=== PATIENT | female | born 1940 | race Caucasian/White ===

== ENCOUNTER 2022-01-06 12:08 | Emergency (ER) | payer OTHER ==
--- OUTSIDE RECORDS SUMMARY | 2022-01-06 12:14 | XMS REPORT | Continuity of Care Document ---
:1940 Author Organization [facility] t Address [address] [place] [address] Care Team Providers Name Role Phone GUILLE YODER Primary Care Physician Unavailable Heavenly Attending Clinician Unavailable Donell Vega Attending Clinician Unavailable Jose Daniel Hernandez Attending Clinician Unavailable Ayo Kang Attending Clinician Unavailable ANTHONY BURDICK Attending Clinician Unavailable Leonel Yoder Attending Clinician Unavailable UMBERTO HERNANDEZ Attending Clinician Unavailable Jeanine Attending Clinician Unavailable Alicia Attending Clinician Unavailable Mikaela Yoder Admitting Clinician Unavailable Ayo Kang Admitting Clinician Unavailable ANTHONY BURDICK Admitting Clinician Unavailable Payers Payer Name Policy Type Policy Number Effective Date Expiration Date S [facility] IMAGING [id number] 2020 00:00:00 Problems Condition Condition Condition Status Onset Resolution Last Treating Co mments Source Name Details Category Date Date Treatment Clinician Date M54.31 - Diagnosis Active 2017-082018-07-25 M emoria SCIATICA, 09-08 15:05:00 l RIGHT SIDE M54. - 00:01: Jeremiah rizzo SCIATICA, 00 RIGHT SIDE Active 07/09/2018 [facility] Unilateral Problem 2019-02-12 M emoria primary 11:33:21 l osteoarthr Juan n itis, Unilateral right hip primary osteoarthr itis, right hip 02/12/2019 [facility] Unspecifie Problem 2019-02-12 M emoria d sprain 11:33:21 l of right [place] hip, Unspecifie initial d sprain encounter of right hip, initial encounter 02/12/2019 [facility] Strain of Problem 2019-02-12 Me moria muscle, 11:33:21 l fascia and Strain Herm guille tendon of of muscle, right hip, fascia and initial tendon of encounter right hip, initial encounter 02/12/2019 [facility] Muscle Problem 2019-02-12 Memor ia wasting 11:33:21 l and Muscle [place] atrophy, wasting not and elsewhere atrophy, classified not , elsewhere unspecifie classified d site , unspecifie d site 02/12/2019 [facility] Effusion, Problem 2019-02-12 Me moria right hip 11:33:21 l [place] Effusion, right hip 02/12/2019 [facility] Pain in Problem 2019-02-12 Willian chas right hip 11:33:21 l Pain in [place] right hip 02/12/2019 [facility] History of Past Illness Condition Condition Condition Status Onset Resolution Last Treating Co mments Source Name Details Category Date Date Treatment Clinician Date Sciatica, Problem 2017-2019-02-12 2019-02-12 Memoria right side 2- 11:33:21 11:33:21 l 05:25: Reginald Sciatica, 51 right side 08/01/2018 02/12/2019 [facility] Allergies, Adverse Reactions, Alerts Allergy Allergy Status Severity Reaction(s) Onset Inactive Treating Comm ents Source Name Type Date Date Clinician No Known DA Active U MAGALIE Allergie 02-17 [facility] s 00:00: d 00 [facility] NO KNOWN Allergy Active [facility] ALLERGIE S Medications This patient has no known medications. Vital Signs Vital Name Observation Time Observation Value Comments Source HEIGHT 2021-09-05 10:02:00 170.2 cm WEIGHT 2021-09-05 10:02:00 73.483 kg Procedures This patient has no known procedures. Encounters Start End Encounter Admission Attending Care Care Encounter Source Date/Time Date/Time Type Type Clinicians Facility Department ID 2021-10-17 Outpatient MERCEDEZ Burdick [id number] [facility] 15:05:10 Thomas 31 [facility] 2021-07-24 Outpatient Heavenly HCAKW [facility] [id number] [facility] 14:56:14 Thomas 65 [facility] 2021-07-04 Outpatient Gary [facility] [id number] [facility] 01:54:04 Darian Choudhury [facility] 2020-09-30 Inpatient LIZA Hernandez, H[facility]KW [facility] [id number] [facility] 15:00:00 Katelyn [id number] [facility] 2020-09-26 Inpatient EL Mary, H[facility]KW [facility] [id number] [facility] 11:30:00 Katelyn [id number] [facility] 2020-09-20 Inpatient LIZA Hernandez, HCAKW [facility] [id number] [facility] 11:00:00 Katelyn [id number] [facility] 2022-01-04 2022-01-04 Outpatient LIZA Kang, HCAKW SHERRY [id number] [facility] 12:00:00 12:00:[address] [facility] 2021-10-17 2021-10-17 Outpatient LIZA Burdick HCAKW RADI [id number] [facility] 14:03:00 14:03:00 Thomas [id number] [facility] 2021-07-24 2021-07-24 Outpatient LIZA Burdick HCAKW CPUL [id number] [facility] 13:05:00 13:05:00 Thomas [id number] [facility] 2021-07-03 2021-07-03 Outpatient LIZA Vega, HCAKW CHINO [id number] [facility] 16:49:00 16:49:00 Darian [id number] [facility] 2021-02-16 2021-02-16 Outpatient LIZA Burdick HCAKW RADI [id number] [facility] 12:21:00 12:21:00 Thomas [id number] [facility] 2021-01-31 2021-01-31 Outpatient HEAVENLY [facility] [id number] 00:00:00 00:00:00 [facility] 2021-01-10 2021-01-10 Outpatient HEAVENLY [facility] [id number] 00:00:00 00:00:00 [facility] 2020-10-13 2020-10-13 Outpatient Eli HCATamieW RMRI [id number] [facility] 12:00:00 12:00:00 Jaquelin [id number] [facility] 2020-08-26 2020-08-26 Outpatient Mary, ANTONIAW RMRI [id number] [facility] 14:00:00 14:00:00 Katelyn [id number] [facility] 2020-05-31 2020-05-31 Outpatient DELOS HCATamieW RMRI [id number] [facility] 13:30:00 13:30:00 MARY, [facility] 2020-05-12 2020-05-12 Outpatient DelosMary, [facility] CAREK CHINO [id number] [facility] 10:30:00 10:30:00 Tam [facility] 2020-05-04 2020-05-04 Outpatient DelosMary, [facility] [id number] [facility] 15:30:00 15:30:00 Tam [id number] [facility] 2020-05-03 2020-05-03 Outpatient DelosMary, [facility] [id number] [facility] 15:00:00 15:00:00 Tam [id number] [facility] 2020-03-30 2020-03-30 Outpatient Alicia, [facility] CARETamie CHINO [id number] [facility] 09:30:00 09:30:00 Ramón [id number] [facility] 2020-01-14 2020-01-14 Outpatient EL Eli KNIGHTW RADI [id number] [facility] 13:26:00 13:26:00 , Jaquelin [id number] [facility] 2018-07-25 2018-07-26 Outpt Diag nullFlavo [facility] [id number] Memoria 20:50:00 05:59:00 Services r Outpatient 00 l Imaging Reginald [place] Results Test Test Test Comments Results Result Source Description Time Comments - XR FOOT 3 + V 2021-10- RT 08 15:01:00 [facility] SEDALIAName: JACQUIE HANKINS : 1940 Sex: F FAX: Rebecca Coronel [phone] [place]: St: REG FAX: Thomas Smith DPM [phone] Name: JACQUIE HANKINS DOLL [facility] : 1940 Age/S: 81/F [address] Unit #: [id number] Loc: [place] [address] Phys: Thomas Burdick DPM Acct: [id number] Dis Date: Status: REG CLI PHONE #: [phone] Exam Date: 10/17/2021 [facility]6 FAX #: [phone] Reason: FOOT PAIN EXAMS: CPT CODE: [id number] XR FOOT 3 + V RT [id number] EXAM: - XR FOOT 3 + V RT HISTORY: 81 years -old Female with FOOT PAIN ADMITTING DIAGNOSIS: Foot pain LOCATION: [facility] COMPARISON: February 16, 2021 TECHNIQUE: 3 views right foot FINDINGS: There are presence of metallic pins fixating the right 1st, 2nd, 3rd, and 4th digit. The patient extends from the distal turf through the middle and proximal phalanx and extending into the head and neck region of the metatarsals. Metallic plates and screw fixating the right 1st metatarsophalangeal joint be seen as well. There are several broken screw embedded within the base of the 1st and 2nd metatarsal as well as the navicular bone. There is evidence of bony fusion involving the base of the 1st, 2nd, 3rd and possible 4th metatarsal with the adjacent cuneiform. No fracture or dislocation can be seen. No intrinsic bony or joint pathology noted. No radiopaque foreign body can be seen. Overlying soft tissues are unremarkable. IMPRESSION: 1. Status post arthrodesis of involving the 1st through 4th digit, as discussed above. 2. Status post arthrodesis involving the metatarsal cuneiform joints. 3. No fracture or dislocation. at 1501 Reported and signed by: Ady Ratliff MD PAGE 1 Signed Report (CONTINUED) FAX: Rebecca Coronel [phone] [place]: St: REG FAX: Thomas Smith DPM [phone] Name: JACQUIE HANKINS [facility] : 1940 Age/S: 81/F [address] Unit #: [id number] Loc: [place] [address] Phys: Thomas Burdick DPM Acct: [id number] Dis Date: Status: REG CLI PHONE #: [phone] Exam Date: 10/17/2021 1426 FAX #: [phone] Reason: FOOT PAIN EXAMS: CPT CODE: [id number] XR FOOT 3 + V RT [id number] <Continued> CC: Jaquelin Yoder MD; Thomas Burdick DPM Technologist: ANA MARIA FAJARDO Trnctrd Date/Time/By: 10/17/2021 (1501) : By: Mariya PAGE 2 Signed Report FAX: Rebecca Coronel [phone] [place]: St: REG FAX: Thomas Smith DPM [phone] Name: JACQUIE HANKINS [facility] : 1940 Age/S: 81/F [address] Unit #: [id number] Loc: [place] [address] Phys: Thomas Burdick DPM Acct: [id number] Dis Date: Status: REG CLI PHONE #: [phone] Exam Date: 10/17/2021 1426 FAX #: [phone] Reason: FOOT PAIN EXAMS: CPT CODE: [id number] XR FOOT 3 + V RT [id number] <Continued> Orig Print D/T: S: 10/17/2021 (1504) PAGE 3 Signed Report TISSUE EXAM 2021-08- Surgical Pathology 31 Report 12:30:42 Case: [id number] Authorizing Provider: Thomas Burdick Collected: 09/07/2021 02:59 PM Ordering Location: [facility] - Perioperative Received: 09/08/2021 07:52 AM Services Pathologist: Alejandro Huerta DO Specimen: Foreign Body, 2 SCREWS FOR ID ONLY TWO SCREWS, REMOVAL:- CONSISTENT WITH SURGICAL HARDWARE Signing Pathologist Direct Phone Line: [phone] lly signed by Alejandro Huerta DO on 09/11/2021 at 12:30 [id number] limitus, right hammertoe of right foot, MPJ contracture right foot. Procedure: toe arthrodesis Foreign body, two screws for ID onlyReceived are two blue alloy screws measuring 1.5 cm in length with diameters of 0.2 cm. There is no adherent tissue. No sections will be submitted. EVELIN/pl Microscopic examination supports the diagnosis.[facility], Department of Pathology, [address] [facility] [place] [address], RAD, FOOT, 2 2021-08- Is this procedure to VIEWS, RIGHT 29 be performed with 06:55:[address] bearing?->Non-Weight [facility] - MEDICAL BearingReason for CENTERName: CR, exam:->s/p 1-4 JACQUIE DOLL hammertoe repair, 1st : 1940 MPJ arthrodesisShould Sex: this be performed at F the bedside?->Yes FINAL REPORT RAD, FOOT, 2 VIEWS, RIGHT INDICATION: s/p 1-4 hammertoe repair, 1st MPJ arthrodesis COMPARISON: None TECHNIQUE: AP and lateral radiographs of the right foot FINDINGS/IMPRESSION:Sta tus post surgical fixation of the right toes 1-4. Casting material obscures fine bony detail. Within these limitations, no definite hardware fracture or malalignment. Signed: Kami Jimenez MDRepreji Verified Date/Time: 09/09/2021 06:55:26 -GLUCOSE METER 2021-09-07 18:31:30 Test Item Value Reference Range Interpretation Comme nts POC-GLUCOSE METER (BEAKER) 70 mg/dL 70-110 : TESTED AT [facility] [address] [facility] (test code = 1538) [facility] [address]: Order Processing Clerk/Techni anushka ID = [id number] for Marleen Barksdale POCT-GLUCOSE [id number] 11:52:47 Test Item Value Reference Range Interpretation Comments POC-GLUCOSE METER 115 mg/dL 70-110 H : TESTED Leonel Lo [facility] [address] (BEAKER) (test code [address], = 1538) [place] [address] 384: Order Processing Clerk/Techni anushka ID = [id number] for Ned Montes De Oca SARS-COV2/RT-PCR ([facility])2021-08-19 12:44:46 Test Item Value Reference Range Interpretation Comments SARS-COV2/RT-PCR (test code = Positive Negative AA [id number]) Positive results indicate that the SARS-CoV-2 RNA was detected in this specimen. The SARS-CoV-2 RNAis generally detectable in nasopharyngeal swab specimens during the acute phase of infection. Positive results are indicative of active infection with SARS-CoV-2 and the patient is presumed to be contagious. Laboratory test results should always be considered in the clinical correlation with patienthistory and other epidemiological and diagnostic information that is necessary to determine patient infection status. Patient management decisions should follow current CDC guidelines. Positive results do not rule out bacterial infection or co-infection with other viruses. The agent detected may not be the definite cause of disease.The limit of detection for this assay is 100 copies/mL.This SARS-CoV-2 test is a real-time RT-PCR test intended for the qualitative detection of nucleic acid from SARS-CoV-2 in a nasopharyngeal swab specimen collected from individuals suspected of COVID-19 by their healthcare provider.This test has not been Food and Drug Administration (FDA) cleared or approved. This is a modified version of an approved Emergency Use Authorization (EUA) and is in the process of review by the FDA. Once authorized by the FDA, the issued EUA will be effective until the declaration that circumstances exist justifying the authorization of the emergency use of in vitro diagnostic tests for detection and/or diagnosis of COVID-19 is terminated under Section 564(b)(2) of the Act or the EUA is revoked under Section 564(g) of the Act.Testing was performed using the [employer] SARS-CoV-2 assay.Fact Sheet for Healthcare Providers:https://www.SnapSense.[employer]/juanito/RT SARS-CoV-2 HCP Fact Sheet 51- 944302.pdfFact Sheet for Healthcare Patients:https://www.Clinithink/juanito/RT SARS-CoV-2 PatientFact Sheet EN 51-480223U4.pdf- DOP ART 1-2 LEVELS AUDREY 2021-07-24 14:53:00 [facility] JACQUIE LAVON : 1940 Sex: F FAX: Rebecca Coronel [phone] [place]: St: REG FAX: Thomas Dorsey DPM [phone] Name: CRJACQUIE DOLL [facility] : 1940 Age/S: 81/F [address] Unit #: [id number] Loc: [place] [address] Phys: Thomas Burdick DPM Acct: [id number] Dis Date: Status: REG CLI PHONE #: [phone] Exam Date: 07/24/2021 1415 FAX #: [phone] Reason: LE PAD,HISTORY OF ULCER EXAMS: CPT CODE: [id number] DOP ART 1-2 LEVELS AUDREY 25810OITJ: - DUP LE ART UNI RT, - DOP ART 1-2 LEVELS AUDREY. LOCATION: B2. HISTORY: LE PAD,HISTORY OF ULCER. COMPARISON: Lower extremity Doppler dated 10/22/2017. TECHNIQUE: Grayscale, color and spectral Doppler evaluation of the right and left common femoral, superficial femoral, popliteal, anterior tibial, peroneal, and posterior tibial arteries was performed. Bilateral ankle brachial indices were also obtained. FINDINGS: Triphasic waveforms are seen in the right common femoral artery. Biphasic waveforms are seen in the right superficial femoral, popliteal, posterior tibial, peroneal, anterior tibial, and dorsalis pedis arteries. There is no significant elevation of segmental systolic velocity in the right lower extremity. Biphasic waveforms are seen in the left common femoral, superficial femoral, popliteal, posterior tibial, peroneal, anterior tibial, and d orsalis pedis arteries. There is no significant elevation of segmental systolic velocity in the left lower extremity. Right KELLY: 0.96. Left KELLY: 0.99. IMPRESSION: No sonographic findings of significant arterial stenosis in bilateral lower extremities. at 1453 Reported and signed by: Richi Manuel MD CC: Jaquelin Ruff MD; Thomas Burdick DPM Technologist:BHAVANA Mukherjee Trnscrd Date/Time/By: 07/24/2021 (5113) : By:[email or web address] PAGE 1 Signed Report FAX: Rebecca Coronel [phone] [place]: St: REG FAX: Thomas Smith DPM [phone] Name: JACQUIE HANKINS [facility] : 1940 Age/S: 81/F [address] Unit #: [id number] Loc: [place] [address] Phys: Thomas Burdick DPM Acct: [id number] Dis Date: Status: REG CLI PHONE #: [phone] Exam Date: 07/24/20211414 FAX #: [phone] Reason: LE PAD,HISTORY OF ULCER EXAMS: CPT CODE: [id number] DOP ART 1-2 LEVELS AUDREY 58317 <Continued> OrigPrint D/T: S: 07/24/2021 (9377) PAGE 2 Signed Report- DUP LE ART UNI RT 2021-07-24 14:53:00 [facility] : 1940 Sex: F FAX: Rebecca Coronel [phone] [place]: St: [facility] FAX: Thomas Dorsey DPM [phone] Name: JACQUIE HANKINS [facility] : 1940 Age/S: 81/F [address] Unit #: [id number] Loc: [place] [address] Phys: Thomas Burdick DPM Acct: [id number] Dis Date: Status: REG CLI PHONE #: [phone] Exam Date: 07/24/20211414 FAX #: [phone] Reason: LEPAD,HISTORY OF ULCER EXAMS: CPT CODE: [id number] DUP LE ART UNI RT 47194ITWE: - DUP LE ART UNI RT, - DOP ART 1-2 LEVELS AUDREY. LOCATION: B2. HISTORY: LE PAD,HISTORY OF ULCER. COMPARISON: Lower extremity Doppler dated 10/22/2017. TECHNIQUE: Grayscale, color and spectral Doppler evaluation of the right and left common femoral, superficial femoral, popliteal, anterior tibial, peroneal, and posterior tibial arteries was performed. Bilateral ankle brachial indices were also obtained. FINDINGS: Triphasic waveforms are seen in the right common femoral artery. Biphasic waveforms are seen in the right superficial femoral, popliteal, posterior tibial, peroneal, anterior tibial, and dorsalis pedis arteries. There is no significant elevation of segmental systolic velocity in the right lower extremity. Biphasic waveforms are seen in the left common femoral, superficial femoral, popliteal, posterior tibial, peroneal, anterior tibial, and d orsalis pedis arteries. There is no significant elevation of segmental systolic velocity in the left lower extremity. Right KELLY: 0.96. Left KELLY: 0.99. IMPRESSION: No sonographic findings of significant arterial stenosis in bilateral lower extremities. at 1453 Reported and signed by: Richi Manuel MD CC: Jaquelin Ruff MD; Thomas Burdick DPM Technologist:BHAVANA Mukherjee Trnscrd Date/Time/By: 07/24/2021 (0642) : By:[email or web address] PAGE 1 Signed Report FAX: Rebecca Coronel [phone] [place]: St: REG FAX: Thomas Smith DPM [phone] Name: JACQUIE HANKINS LAVON [facility] : 1940 Age/S: 81/F [address] Unit #: [id number] Loc: [place] [address] Phys: Thomas Burdick DPM Acct: [id number] Dis Date: Status: REG CLI PHONE #: [phone] Exam Date: 07/24/20211414 FAX #: [phone] Reason: LEPAD,HISTORY OF ULCER EXAMS: CPT CODE: [id number] [address] <Continued> OrigPrint D/T: S: 07/24/2021 (1454) PAGE 2 Signed Report- [facility] [id number] 01:50:00 [facility] : 1940 Sex: F FAX: Brandi Coronelzabet [phone] [place]: St: DEP FAX: Darian Epstein am [phone] Name: JACQUIE HANKINS [facility] : 1940 Age/S: 81/F [address] Unit #: [id number] Loc: [place] [address] Phys: Darian Vega MD Acct: [id number] Dis Date: Status: DEP CLI PHONE #: [phone] Exam Date: 07/03/2021 1825 FAX #: [phone] Reason: CYST OF KIDNEY EXAMS: CPT CODE: [id number] US RETROPERITONEAL COM [id number] LOCATION: H48 HISTORY: Female, 81 years of age with acquired cyst of kidne y EXAM: ULTRASOUND OF THE KIDNEYS AND URINARY BLADDER COMPARISON: CT abdomen 09/30/2000, MRI abdomen 10/13/2020 TECHNIQUE: Transabdominal images of the kidneys and urinary bladder with color Doppler interrogation were performed with the sector transducer. FINDINGS: RIGHT KIDNEY: 10.4 x 5.9 x 5.1 cm Cortex: 1.1 cm thickness,normal echogenicity. No hydronephrosis, calculus, or obvious mass. LEFT KIDNEY: 9.7 x 4.4 x 5.1 cm Cortex: 0.8 cm thickness, normal echogenicity. No hydronephrosis, calculus, or obvious mass. URINARY BLADDER: Images of the moderately full urinary bladder show no significant wall thickening. No filling defects or diverticula. Ureteral jets are not visualized. IMPRESSION: Unremarkable ultrasound of the kidneys and urinary bladder. It should be noted that previous MRI and CT scan showed multiple small less than 1 cm cystic lesions in both kidneys which are not detected by this ultrasound probably due tosize. at 0150 Reported and signed by: Anh Rubi MD CC: Jaquelin Yoder MD; Darian Ahuja MD Technologist: Garry Shultz [facility] Trnscrd Date/Time/By: 07/04/2021 (0150) : By: JoyCLW PAGE 1 Signed Report FAX: Rebecca Coronel [phone] [place]: St: [facility] FAX: Darian Valdez [phone] Name: JACQUIE HANKINS [facility] : 1940 Age/S: 81/F [address] Unit #: [id number] Loc: [place] [address] Phys: Darian Vega MD Acct: [id number] Dis Date: Status: DEP CLI PHONE #: [phone] Exam Date: 07/03/2021 1825 FAX #: [phone] Reason: CYST OF KIDNEY EXAMS: CPT CODE: [id number] [place] [address] <Continued> Orig Print D/T: S: 07/04/2021 (0153) PAGE 2 Signed Report- XR FOOT 3 + V [id number] 12:55:00 [facility] [place] : 1940 Sex: F FAX: Rebecca Coronel [phone] [place]: [facility]: REG FAX: Thomas Dorsey Ayo [phone] Name: BELEM HANKINSEMERALD DOLL [facility] : 1940 Age/S: 80/F [address] Unit #: [id number] Loc: [place] [address] Phys: Thomas Burdick DPM Acct: [id number] Dis Date: Status: REG CLI PHONE #: [phone] Exam Date: 02/16/2021 1240 FAX #: [phone] Reason: FOOT MIDFOOT COLLAPSE EXAMS: CPT CODE: [id number] XR FOOT 3 + V RT 11487FCIX: - XR FOOT 3 + V RT HISTORY: FOOT MIDFOOT COLLAPSE Location code:C3 COMPARISON: 08/26/2015 FINDINGS: AP, oblique, and lateral view of the right foot is provided. Remnant orthopedic screws within the navicular, 1st and 2nd metatarsal IMPRESSION: No acute osseous abnormality. And the 1st and 2nd metatarsals are seen. Healed deformity left 1st metatarsal is present. Dorsal dislocation of the proximal phalanx of the great toe relative the metatarsal is seen. With features within the 2nd and 3rd metatarsal heads are present. Hammertoe deformity about the 3rd through 5th digits is seen with marked degenerative features. Weightbearing lateral view demonstrates mild pes planus. IMPRESSION: 1. Mild pes planus and weightbearing lateral view. 2. Postsurgical and chronic features as above. at 3557 Reported and signed by: Shahab Prado MD CC: Jaquelin Yoder MD; Thomas Burdick DPM Technologist: ANA MARIA SHIPLEY; STUDENT 2ND YEAR [facility] Date/Time/By: 02/16/2021 (0278) : By: [email or web address] PAGE 1 Signed Report FAX: Rebecca Coronel [phone] [place]: St: REG FAX: Thomas Smith DPM [phone] Name: JACQUIE HANKINS [facility] : 1940 Age/S: 80/F [address] Unit #: [id number] L oc: [place] [address] Phys: Thomas Burdick DPAyo Acct: [id number] Dis Date: Status: REG CLI PHONE #: [phone] Exam Date: 02/16/2021 1240 FAX #: [phone] Reason: FOOT MIDFOOT COLLAPSE EXAMS: CPT CODE: [id number] XR FOOT 3 + V [place] [id number] <Continued> Orig Print D/T: S: 02/16/2021 (2941) PAGE 2 Signed Report- MRI PELVIS W/O [id number] 14:59:00 [facility] 1940 Sex: F FAX: Rebecca Coronel [phone] [place]: St: REG Name: JACQUIE HANKINS [facility] : 1940 Age/S: 80/F [address] Unit #: [id number] Loc: [place] [address] Phys: Jaquelin Yoder MD Acct: [id number] Dis Date: S tatus: REG CLI PHONE #: [phone] Exam Date: 10/13/2020 1308 FAX #: [phone] Reason: OTHER SPECIFIED DISORDERS OF KIDNEY AND URETER EXAMS: CPT CODE: [id number] MRI PELVIS W/O CONT 26941 EXAM: - MRI ABDOMEN W/O CONT, - MRI PELVIS W/O CONT INDICATION: OTHER SPECIFIED DISORDERS OF KIDNEY AND URETER Location:T 18. COMPARISON: CT and MRI examinations since 2019. TECHNIQUE: Multiplanar, multisequence MRI of the abdomen and pelvis was performed without intravenous contrast. FINDINGS: Visualized chest: No consolidation or pleural effusion seen. Assessment of abdominal organs within limitations of lack of intravenous contrast asfollows: Hepatobiliary: Heterogeneous right hepatic lobe due to hyperintense structure measuring approximately 4.1 cm x 2.4 cm in size appears to be essentially unchanged since 2019. Multiple hepatic T2 hyperintensities also appear unchanged, consistent withcysts. There is mild extrahepatic and intrahepatic The urinary ductal dilatation seen, unchanged. Pancreas: Mild pancreatic ductal dilatation also seen, unchanged. Spleen: Appears unremarkable. Adrenals: Appears unremarkable. Kidne ys: Mild atrophy of the renal parenchyma seen bilaterally. Small T2 hyperintense structure within the medial aspect of the right kidney on series 8, image 19 measuring 7 mm in size, betterevaluated on the current study compared to the most recent CT examination. Additional similar- appearing multiple tiny renal T2 hyperintensities, seen bilaterally. No hydronephrosis seen. Bowel: No bowel obstruction or ileus seen. Colonic diverticulosis. Vascular: Not well assessed due to lack of intravenous contrast. PAGE 1 Signed Report (CONTINUED) FAX: Rebecca Coronel [phone] [place]: St: REG ---- Name: JACQUIE HANKINS [facility] : 1940 Age/S: 80/F [address] Unit #: [id number] Loc: [place] [address] Phys: [facility]elin [facility]ieto [facility] [id number] Dis Date: Status: REG CLI PHONE #: [phone] Exam Date: 10/13/2020 1308 FAX #: [phone] Reason: OTHER SPECIFIED DISORDERS OF KIDNEY AND URETER EXAMS: CPT CODE: [id number] MRI PELVIS W/O CONT 38323 <Continued> Lymph nodes: No enlarged lymph nodes seen. Peritoneum: No ascites seen. Soft tissues:No significant abnormality seen. Bones:No definite acute or destructive osseous process appreciated. Genitourinary: The urinary bladder is mildly distended. The patient appears to be post hysterectomy, and probable salpingo-oophorectomy. IMPRESSION: Unchanged appearance of right hepatic lobe heterogeneous structure. Follow-up imaging in 12 months. Multiple small renal T2 hyperintensities, one of which corresponds to the previously noted CT abnormality. These are incompletelycharacterized, but probably reflect cysts. Attention on follow-up imaging. Unchangedmild biliary and pancreatic ductal dilatation, uncertain etiology. Findings raise the possibility of an ampullary pathology. Consider GI consultation. Attention on follow-up imaging. at 5874 Reported and signed by: Yunior Villanueva MD CC: Jaquelin Yoder MD Technologist:Shae Romano Trnscrd Date/Time/By: 10/13/2020 (9612) : By:[email or web address] PAGE 2 Signed Report FAX: Rebecca Calhoun [phone] [place]: St: REG Name: JACQUIE HANKINS [facility] : 1940 Age/S: 80/F [address] Unit #: [id number] Loc: [place] [address] Phys: Jaquelin Yoder MD Acct: [id number] Dis Date: Status: REG CLI PHONE #: [phone] Exam Date: 10/13/2020 1308 FAX #: [phone] Reason: OTHER SPECIFIED DISORDERS OF KIDNEY AND URETER EXAMS: CPT CODE: [id number] MRI PELVIS W/O CONT 31409 <Continued> Orig Print D/T: S: 10/13/2020 (1507) PAGE 3 Signed Report- MRI ABDOMEN W/O [id number] 14:59:00 [facility] : 1940 Sex: F FAX: Y Rebecca Yoder [phone] [place]: St: REG Name: JACQUIE HANKINS [facility] : 1940 Age/S: 80/F [address] Unit #: [id number] Loc: [place] [address] Phys: Jaquelin Yoder MD Acct: [id number] Dis Date: S tatus: SUNNY JASSO PHONE #: [phone] Exam Date: 10/13/2020 1309 FAX #: [phone] Reason: OTHER SPECIFIED DISORDERS OF KIDNEY AND URETER EXAMS: CPT CODE: [id number] MRI ABDOMEN W/O CONT 37649 EXAM: - MRI ABDOMEN W/O CONT, - MRI PELVIS W/O CONT INDICATION: OTHER SPECIFIED DISORDERS OF KIDNEY AND URETER Location:T 18. COMPARISON: CT and MRI examinations since 2019. TECHNIQUE: Multiplanar, multisequence MRI of the abdomen and pelvis was performed without intravenous contrast. FINDINGS: Visualized chest: No consolidation or pleural effusion seen. Assessment of abdominal organs within limitations of lack of intravenous contrast asfollows: Hepatobiliary: Heterogeneous right hepatic lobe due to hyperintense structure measuring approximately 4.1 cm x 2.4 cm in size appears to be essentially unchanged since 2019. Multiple hepatic T2 hyperintensities also appear unchanged, consistent withcysts. There is mild extrahepatic and intrahepatic The urinary ductal dilatation seen, unchanged. Pancreas: Mild pancreatic ductal dilatation also seen, unchanged. Spleen: Appears unremarkable. Adrenals: Appears unremarkable. Kidne ys: Mild atrophy of the renal parenchyma seen bilaterally. Small T2 hyperintense structure within the medial aspect of the right kidney on series 8, image 19 measuring 7 mm in size, betterevaluated on the current study compared to the most recent CT examination. Additional similar- appearing multiple tiny renal T2 hyperintensities, seen bilaterally. No hydronephrosis seen. Bowel: No bowel obstruction or ileus seen. Colonic diverticulosis. Vascular: Not well assessed due to lack of intravenous contrast. PAGE 1 Signed Report (CONTINUED) FAX: Rebecca Coronel [phone] [place]: St: REG ---- Name: JACQUIE HANKINS [facility] : 1940 Age/S: 80/F [address] Unit #: [id number] Loc: [place] [address] Phys: Jaquelin Nieto [facility] [id number] Dis Date: Status: REG CLI PHONE #: [phone] Exam Date: 10/13/2020 1309 FAX #: [phone] Reason: OTHER SPECIFIED DISORDERS OF KIDNEY AND URETER EXAMS: CPT CODE: [id number] MRI ABDOMEN W/O CONT 94742 <Continued> Lymph nodes: No enlarged lymph nodes seen. Peritoneum: No ascites seen. Soft tissues:No significant abnormality seen. Bones:No definite acute or destructive osseous process appreciated. Genitourinary: The urinary bladder is mildly distended. The patient appears to be post hysterectomy, and probable salpingo-oophorectomy. IMPRESSION: Unchanged appearance of right hepatic lobe heterogeneous structure. Follow-up imaging in 12 months. Multiple small renal T2 hyperintensities, one of which corresponds to the previously noted CT abnormality. These are incompletelycharacterized, but probably reflect cysts. Attention on follow-up imaging. Unchangedmild biliary and pancreatic ductal dilatation, uncertain etiology. Findings raise the possibility of an ampullary pathology. Consider GI consultation. Attention on follow-up imaging. at 1366 Reported and signed by: Yunior Villanueva MD CC: Jaquelin Yoder MD Technologist:Shae Romano Trnscrd Date/Time/By: 10/13/2020 (1139) : By:[email or web address] PAGE 2 Signed Report FAX: Rebecca Calhoun [phone] [place]: St: REG Name: JACQUIE HANKINS [facility] : 1940 Age/S: 80/F [address] Unit #: [id number] Loc: [place] [address] Phys: Jaquelin Yoder MD Acct: [id number] Dis Date: Status: REG CLI PHONE #: [phone] Exam Date: 10/13/2020 1309 FAX #: [phone] Reason: OTHER SPECIFIED DISORDERS OF KIDNEY AND URETER EXAMS: CPT CODE: [id number] MRI ABDOMEN W/O CONT 94204 <Continued> Orig Print D/T: S: 10/13/2020 (1502) PAGE 3 Signed ReportBEDSIDE [id number] 12:40:00 Test Item Value Reference Range Interpretation Comments BEDSIDE CREATININE (test code = 1.90 mg/dL 0.51-1.19 H CREATBED) - CT ABDOMEN W W/O [id number] 14:17:00 [facility] : 1940 Sex: F FAX: Y Rebecca Yoder [phone] [place]: St: REG FAX: Katelyn Hernandez [phone] Name: JACQUIE HANKINS [facility] : 1940 Age/S: 80/F [address] Unit: [id number] Loc: [place] [address] Phys: Katelyn Hernandez [employer] Acct: [id number] Dis Date: Status: REG CLI PHONE #: [phone] Exam Date: 09/30/2020 1337 FAX #: [phone] Reason: LIVER LESION EXAMS: CPT CODE: [id number] CT ABDOMEN W W/O CONTRAST 03696KJJT: - CT ABDOMEN W W/O CONTRAST LOCATION: H65 TECHNIQUE: Serial axialCT images were obtained from above the diaphragm to below the kidneys without and with the administration of intravenous contrast. Oral contrast was not administered. Phase(s): Noncontrast, arterial, portal venous, and delayed phases. Reformats: Standard coronal and sagittal reformats. This exam was performed according to our departmental dose-optimization program, which includes automated exposure control, adjustment of the mA and/or kV according to patient size and/or use of iterative reconstruction technique. COMPARISON: MRI abdomen 05/31/2020; CT abdomen and pelvis 05/03/2020, 09/13/2018 HISTORY: LIVER LESION FINDINGS: LUNG BASES: Perfusion related atelectasis noted in the dependent lung bases. Three-vessel coronary artery calcifications again seen. LIVER: Normal attenuation and contour. Multiple well- circumscribed hypodense lesions are again noted, representing known simple cysts as seen on prior MRI. Complex density irregular shaped hypodense lesion is again noted in hepatic segment 7 measuring approximately 4.6 x 3.5 cm (series 2 image 22). There does appear to be a isodense/soft tissue component which demonstrates minimal enhancement. BILIARY: The gallbladder is normal. No intrahepatic or extrahepatic biliary ductal dilation. PANCREAS: Atrophic, but otherwise unremarkable. SPLEEN: Normal. ADRENALS: Normal. KIDNEYS: The kidneys are normal in size with symmetric enhancement. No hydronephrosis or kidney stones. Bilateral subcentimeter hypodense lesions noted, which correspond to simple renal cyst seen on prior PAGE 1 Signed Report (CONTINUED) FAX: Rebecca Coronel [phone] [place]: St: REG FAX: Katelyn Hernandez [phone] Name: JACQUIE HANKINS [facility] : 1940 Age/S: 80/F [address] Unit: [id number] Loc: [place] [address] Phys: Katelyn Hernandez [employer] Acct: [id number] Dis Date: Status: REG CLI PHONE #: [phone] Exam Date: 09/30/2020 1337 FAX #: [phone] Reason: LIVER LESION EXAMS: CPT CODE: [id number] CT ABDOMEN W W/O CONTRAST 95087 <Continued> MRI. There is a 1.3 x 1.3 cm peripherally enhancing lesion medial interpolar region right kidney (series 2 image 31). The proximal ureters are nondilated. GASTROINTESTINAL: The distal esophagus is unremarkable. The small and large bowel loops demonstrate no signs of obstruction or inflammation. Colonic diverticulosis noted. The appendix is not visualized. VASCULAR: The abdominal aorta is nonaneurysmal. Moderate to severe atherosclerosis. Main portal vein is patent. LYMPH NODES: No enlarged lymph nodes. MESENTERY: Grossly unremarkable with no free air or loculated fluid collections. SOFT TISSUES: Unremarkable. BONES: No acute osseous findings. Evidence of prior compression deformities with kyphoplasty involvingthe T8 and T9 vertebral bodies. Mild scoliosis. IMPRESSION: 1. The complex density irregular shaped lesion involving hepatic segment7 is unchanged in size dating back to 2019 with ill-defined isodense/soft tissue component which appears to demonstrate minimal enhancement. This is indeterminate and may represent hyperdense debris/cricoid of blood products with artifactual enhancement from attenuation correction, but mixed solid cystic lesion is difficult to completely exclude. Again a multiphase MRI would be the optimal study choice for further evaluation. 2. Incidental note of 1.3 cm peripherally enhancing lesion involving the medial interpolar right ki dney. This is concerning for malignancy and would also be better assessed with multiphase MRI. PAGE 2 Signed Report (CONTINUED) FAX: Rebecca Coronel [phone] [place]: St: REG FAX: Katelyn Hernandez [phone] Name: JACQUIE HANKINS [facility] : 1940 Age/S: 80/F [address] Unit: [id number] Loc: [place] [address] Phys: Katelyn Hernandez NP Acct: [id number] Dis Date: Status: REG CLI PHONE #: [phone] Exam Date: 09/30/2020 [facility] FAX #: [phone] Reason: LIVER LESION EXAMS: CPT CODE: [id number] CT ABDOMEN W W/O CONTRAST 43144 <Continued> at 1417 Reported and signed by: Jose Angel Nina DO CC: Jaquelin Yoder MD; Katelyn Hernandez NP Technologist: CAREY Reese Trnscrd Dt/Tm: 09/30/2020 (7907) [id number] Orig Print D/T: S: 09/30/2020 (1420 PAGE 3 Signed ReportBEDSIDE [id number] 13:23:00 Test Item Value Reference Range Interpretation Comments BEDSIDE CREATININE (test code = 1.50 mg/dL 0.51-1.19 H CREATBED) - MRI ABDOMEN W/O [id number] 16:12:00 [facility] : 1940 Sex: F FAX: Rebecca Coronel [phone] [place]: St: REG FAX: Name: JACQUIE HANKINS [facility] : 1940 Age/S: 80/F [address] Unit #: [id number] Loc: [place] [address] Phys: KATELYN SOLORZANO Acct: [id number] Dis Date: Status: REG CLI PHONE #: [phone] Exam Date: 05/31/2020 1415 FAX #: [phone] Reason: LIVER LESION EXAMS: CPT CODE: [id number] MRI ABDOMEN W/O CONT 70748AQTH: - MRI ABDOMEN W/O CONT INDICATION: 80 years -old Female with LIVER LESION COMPARISON: 05/03/2020 CT abdomen and pelvis TECHNIQUE: Multisequential, multiplanar noncontrast MRI of the abdomen. FINDINGS: The common bile duct is normal in size. No filling defects. The gallbladder is unremarkable. No intrahepatic biliary ductal dilatation. Multiple T2 bright round lesions are seen throughout theliver. There is a 4.3 cm T2 heterogeneous lesion in segment 7 of the liver. Multiple subcentimeter round T2 bright lesions are identified in the kidneys. No hydronephrosis. The spleen, pancreas, adrenals, visualized bowel are unremarkable. No lymp hadenopathy. IMPRESSION: Multiple T2 bright round lesions throughout the liver are incompletely characterized. Differential diagnosis includes cysts, hemangiomas, or less likely metastasis. 4.3 cm lesion in segment 7 of the liver demonstrates T2 heterogeneity and a triple phase MRI of the abdomen is recommended for further evaluation of this particular lesion. Multiple subcentimeter T2 bright lesions in bothkidneys likely cysts. at 1612 Reported and signed by: Jewel Hyde MD CC: Jaquelin Yodre MD; KATELYN SOLORZANO Technologist: VENKATESH MENDEZ Trnctrd Date/Time/By: 05/31/2020 (8582) : By: [email or web address] PAGE 1 Signed Report FAX: Rebecca Coronel [phone] [place]: St: REG FAX: Name: JACQUIE HANKINS [facility] : 1940 Age/S: 80/F [address] Unit #: [id number] Loc: [place] [address] Phys: KATELYN SOLORZANO Acct: [id number] Dis Date: Status: REG CLI PHONE #: [phone] Exam Date: 05/31/2020 1415 FAX #: [phone] Reason: LIVER LESION EXAMS: CPT CODE: [id number] MRI ABDOMEN W/O CONT 24895 < Continued> Orig Print D/T: S: 05/31/2020 (1538) PAGE 2 Signed ReportBEDSIDE [id number] 14:22:00 Test Item Value Reference Range Interpretation Comments BEDSIDE CREATININE (test code = 1.70 mg/dL 0.51-1.19 H CREATBED) - US ABDOMEN [id number] 11:45:00 FAX: Rebecca Coronel [phone] [place]: St: REG FAX: Rodger Hernandez [phone] Name: JACQUIE HANKINS [facility] : 1940 Age/S: 80/F [address] Unit #: [id number] Loc: [place] [address] Phys: Anel Solorzano [employer] Acct: [id number] Dis Date: Status: REG CLI PHONE #: [phone] Exam Date: 05/12/2020 1139 FAX #: [phone] Reason: LIVER LESION EXAMS: CPT CODE: [id number] US ABDOMEN LTD 85600 EXAM: - US ABDOMEN LTD HISTORY: LIVER LESION Location code:C3 COMPARISON: 05/03/2020 TECHNIQUE: Grayscale B-mode and color Doppler sonographic images ofthe right upper quadrant were obtained. FINDINGS: Liver: Right hepatic lobe length: 15 cm Parenchyma/Contour: Anechoic nonvascular cysts are seen in the liver the largest of which is in the right hepatic lobe measuring 1.6 x 1.5 cm in size. There is a wedge-shaped hypoechoic structure without internal flow along the periphery of theliver in the right hepatic lobe inferiorly measuring 2.9 x 1.7 x 2.8 cm a few internal echoes corresponding with question CT abnormality. Main portal vein: Patent with normal (hepatopetal) flow. Biliary ducts: No intrahepatic biliary ductal dilation. Common ductmeasures 6 mm in diameter at the camilo hepatis. Gallbladder: Unremarkable. No cholelithiasis.No gallbladder wall thickening or pericholecystic fluid. Pancreas: The visualized portions of the pancreas are unremarkable. Right Kidney: No hydronephrosis is seen. Anechoic nonvascular cyst in the right kidney measuring 7 x 10 mm in size is present. Renal cortical thickness and echogenicity is within normal limits. Length: 12.3 cm Other: No ascites in the visualized abdomen. IMPRESSION: 1. Multiple hepatic cysts are present as well as simple right renal cyst however there is a lesion in the right hepatic lobe measuring 2.9 cm which cannot be characterized as simple cyst on the basis of this examination corresponding with abnormality seen on CT. Therefore CT or MRI of the liver with and without contrast utilizing hepatic mass PAGE 1 Signed Report (CONTINUED) FAX: Rebecca Calhoun [phone] [place]: [facility]: REG FAX: Rodger Hernandez [phone] Name: CRJACQUIE LAVON [facility] : 1940 Age/S: 80/F [address] Unit #: [id number] Loc: [place] [address] Phys: Anel Solorzano NP Acct: [id number] Dis Date: Status: REG CLI PHONE #: [phone] Exam Date: 05/12/2020 1135 FAX #: [phone] Reason: LIVER LESION EXAMS: CPT CODE: [id number] ABDOMEN LTD 16603 <Continued> protocol is still recommended. at 1145 Reported and signed by: Shahab Prado MD CC: Jaquelin Yoder MD; Anel Solorzano NP Technologist: Kathy Bell RDMS Trnscrd Date/Time/By: 05/12/2020 (1145) : By: [email or web address] PAGE 2 Signed Report FAX: Rebecca Coronel [phone] [place]: [facility]: REG FAX: Rodger Hernandez [phone] Name: JACQUIE HANKINS [facility] : 1940 Age/S: 80/F [address] Unit #: [id number] Loc: [place] [address] Phys: Anel Solorzano [employer] Acct: [id number] Dis Date: Status: REG CLI PHONE #: [phone] Exam Date: 05/12/2020 1131 FAX #: [phone] Reason: LIVER LESION EXAMS: CPT CODE: [id number] US ABDOMENLTD 85560 <Continued> Orig Print D/T: S: 05/12/2020 (6072) PAGE 3 Signed Report- CT ABD PELVIS W/O [id number] 15:08:00 FAX: Rebecca Calhoun [phone] [place]: St: REG FAX: Rodger Hernandez [phone] Name: JACQUIE HANKINS [facility] : 1940 Age/S: 80/F [address] Unit: [id number] Loc: [place] [address] Phys: Anel Solorzano [employer] Acct: [id number] Dis Date: Status: REG CLI PHONE #: [phone] Exam Date: 05/03/2020 1455 FAX #: [phone] Reason: LEFT UPPER QUADRANT PAIN EXAMS: CPT CODE: [id number] CT ABD PELVIS W/O CONT 94123 EXAM: - CT ABD PELVIS W/O CONT HISTORY: LEFT UPPER QUADRANT PAIN Location code:C3 TECHNIQUE: Contrast - No IV contrast was given. No oral contrast was given Noncontrast phase - abdomen and pelvis including all of kidneys Reconstructions - coronal and sagittal planes Automated exposure reduction (Auto mA/Smart mA) was utilized in compliance with ACR Image Wisely with DLP of 654 mGy-cm. COMPARISON: None FINDINGS: Statements: Lack of intravenous contrast compromises evaluation of abdominopelvicorgans and vasculature. Lack of oral contrast compromises evaluation of bowel. T horacic: Included images of the lower chest demonstrate no abnormalities. Hepatobiliary: Multiple hepatic hypodensities are present most of which represent simple cysts however the largest lesion is in the right hepatic lobe measuring 3.8 x 2.2 cm in cannot be characterized as simple cysts and there is associated peripheral calcification with this lesion. Please see discussion below. The gallbladder is normal. No biliary dilation. Pancreas: Normal. Spleen: Normal. Adrenals: Normal. Genitourinary: The kidneys are normal. There is no evidence of hydronephrosis of either kidney. There is no evidence of renal calculus. Evaluation of the bladder is limited, but no obvious bladder abnormality is present. Uterus is not visualized and presumed surgically absent. PAGE 1 Signed Report (CONTINUED) FAX: Rebecca Coronel [phone] [place]: St: REG FAX: Rodger Hernandez [phone] ---- Name: JACQUIE HANKINS [facility] : 1940 Age/S: 80/F [address] Unit: [id number] Loc: [place] [address] Phys: Anel Solorzano [employer] Acct: [id number] Dis Date: Status: REG CLI PHONE #: [phone] Exam Date: 05/03/2020 1455 FAX #: [phone] Reason: LEFT UPPER QUADRANT PAIN EXAMS: CPT CODE: [id number] CT ABD PELVIS W/O CONT 20972 <Continued> Gastrointestinal: Extensive colonic diverticulosis is present without CT evidence of diverticulitis. No bowelobstruction is seen. The appendix is normal. Vascular: Atherosclerotic calcifications are seen within the aorta and branch vessels. Lymphatics: No enlarged lymph nodes by CT size criteria. Bones/Soft Tissues: Right convex scoliosis of the lumbar spine is seen with multilevel degenerative features. Evidence of prior vertebral cement in the thoracic spine is partially imaged. No acute osseous abnormality is seen. No ventral hernias. Peritoneum/Other: No extraluminal air. No extraluminal fluid. IMPRESSION: 1. Multiple hepatic hypodensities are present some of which represent simple cysts however the largest lesion in the right hepatic lobe measuring up to 3.8 cmwith peripheral calcification is incompletely characterized. CT of the liver with and without contrast utilizing hepatic mass protocol is recommended. 2. Extensive colonic diverticulosis without CT evidence of diverticulitis. 3. Other chronic findings as above. at 1503 Reported and signed by: Shahab Prado MD CC: Jaquelin Yoder MD; Anel Solorzano NP Technologist: ORION KAPADIA Trnscrd Dt/Tm: 05/03/2020 (0652) [email or web address] Orig Print D/T: S: 05/03/2020 (1511 PAGE 2 Signed Report- US RETROPERITONEAL [id number] 10:57:00 FAX: Rebecca Calhoun [phone] [place]: St: REG FAX: Ramón Helm MD [phone] Name: JACQUIE HANKINS [facility] [place] : 1940 Age/S: 79/F [address] Unit #: [id number] Loc: [place] [address] Phys: Ramón Vargas MD Acct: [id number] Dis Date: Status: REG CLI PHONE #: [phone] Exam Date: 03/30/2020 1029 FAX #: [phone] Reason: CHRONIC KIDNEY DISEASE, UNSPECIFIED EXAMS: CPT CODE: [id number] [facility] COM 01492 EXAM: Ultrasound renal LOCATION: C3 HISTORY: ATHEROSCLEROSIS OF RENAL ARTERY TECHNIQUE: Grayscale B-mode and color Doppler sonographic images of the kidneys were performed. Dedicated grayscale B-mode and color Doppler pelvic imaging of the urinary bladder was also performed. Doppler interrogation of the renal vasculature also performed. COMPARISON: None available FINDINGS: The right kidney measures 12.2 x 5.8 x5.1 cm. No hydronephrosis. No focal lesions. Parenchyma is echogenic. The left kidney measures 10.6 x 4.9 x 6 cm. No hydronephrosis. No focal lesions. Parenchyma is echog enic. The urinary bladder volume is 352 mL with postvoid residual volume of 111 mL. Bilateral ureteral jets are seen. Peak systolic velocities: Aorta 74.3 cm/s Right renal artery 140 cm/s Left renal artery 52.1 cm/s Right renal artery to aorta ratio 1.9 Left renal artery to aorta ratio 0.7 IMPRESSION: No hydronephrosis. Medical renal disease. No evidence of renal artery stenosis. Significant postvoid residual. PAGE 1 Signed Report (CONTINUED) FAX: Rebecca Coronel [phone]: St: REG FAX: Ramón Helm MD [phone] Name: JACQUIE HANKINS [facility] : 1940 Age/S: 79/F [address] Unit #: [id number] [place]: [place] [address] Phys: Ramón Vargas MD Acct: [id number] Dis Date: Status: REG CLI PHONE #: [phone] Exam Date: 03/30/2020 1029 FAX #: [phone] Reason: CHRONIC KIDNEY DISEASE, UNSPECIFIED EXAMS: CPT CODE: [id number] [employer] [facility] [address] <Continued> at 1057 Reported and signed by: Jewel Hyde MD CC: Jaquelin Yoder MD; Ramón Vargas MD Technologist: Kathy Bell [facility] Trnscrd Date/Time/By: 03/30/2020 (6157) : By: [email or web address] PAGE 2 Signed Report FAX: Rebecca Coronel [phone] [place]: St: REG FAX: Ramón Helm MD [phone] --------- Name: JACQUIE HANKINS [facility] : 1940 Age/S: 79/F [address] Unit #: [id number] Loc: [place] [address] Phys: Ramón Kwan MD Acct: [id number] Dis Date: Status: REG CLI PHONE #: [phone] Exam Date: 03/30/2020 1029 FAX #: [phone] Reason: CHRONIC KIDNEY DISEASE, UNSPECIFIED EXAMS: CPT CODE: [id number] [facility] [address] <Continued> Orig Print D/T: S: 03/30/2020 (1100) PAGE 3 Signed Report- DUP ABD/PEL/SC [id number] 10:57:00 FAX: Rachel Rebecca Yoder [phone] [place]: St: REG FAX: Ramón Helm MD [phone] Name: JACQUIE HANKINS [facility] : 1940 Age/S: 79/F [address] Unit #: [id number] Loc: [place] [address] Phys: Ramón Vargas MD Acct: [id number] Dis Date: Status: REG CLI PHONE #: [phone] Exam Date: 03/30/2020 1029 FAX #: [phone] Reason: ATHEROSCLEROSIS OF RENAL ARTERY EXAMS: CPT CODE: [id number] [facility] ABD/PEL/SC COMP 87950 EXAM: Ultrasound renal LOCATION: C3 HISTORY: ATHEROSCLEROSIS OF RENAL ARTERY TECHNIQUE: Grayscale B-mode and color Doppler sonographic images of the kidneys were performed. Dedicated grayscale B-mode and color Doppler pelvic imaging of the urinary bladder was also performed. Doppler interrogation of the renal vasculature also performed. COMPARISON: None available FINDINGS: The right kidney measures 12.2 x 5.8 x5.1 cm. No hydronephrosis. No focal lesions. Parenchyma is echogenic. The left kidney measures 10.6 x 4.9 x 6 cm. No hydronephrosis. No focal lesions. Parenchyma is echog enic. The urinary bladder volume is 352 mL with postvoid residual volume of 111 mL. Bilateral ureteral jets are seen. Peak systolic velocities: Aorta 74.3 cm/s Right renal artery 140 cm/s Left renal artery 52.1 cm/s Right renal artery to aorta ratio 1.9 Left renal artery to aorta ratio 0.7 IMPRESSION: No hydronephrosis. Medical renal disease. No evidence of renal artery stenosis. Significant postvoid residual. PAGE 1 Signed Report (CONTINUED) FAX: Rebecca Coronel [phone]: St: REG FAX: Ramón Helm MD [phone] Name: JACQUIE HANKINS [facility] : 1940 Age/S: 79/F [address] Unit #: [id number] Loc: [place] [address] Phys: Ramón Vargas MD Acct: [id number] Dis Date: Status: REG CLI PHONE #: [phone] Exam Date: 03/30/2020 1029 FAX #: [phone] Reason: ATHEROSCLEROSIS OF RENAL ARTERY EXAMS: CPT CODE: [id number] DUP ABD/PEL/SC COMP 63821 <Continued> at 1057 Reported and signed by: Jewel Hyde MD CC: Jaquelin Yoder MD; Ramón Vargas MD Technologist: Kathy Bell [facility] Trnscrd Date/Time/By: 03/30/2020 (1057) : By: [email or web address] PAGE 2 Signed Report FAX: Rebecca Coronel [phone] [place]: St: REG FAX: Ramón Helm MD [phone] --------- Name: JACQUIE HANKINS [facility] : 1940 Age/S: 79/F [address] Unit #: [id number] Loc: [place] [address] Phys: Ramón Kwan MD Acct: [id number] Dis Date: Status: REG CLI PHONE #: [phone] Exam Date: 03/30/2020 1029 FAX #: [phone] Reason: ATHEROSCLEROSIS OF RENAL ARTERY EXAMS: CPT CODE: [id number] D[facility] ABD/PEL/SC COMP 83653 <Continued> Orig Print D/T: S: 03/30/2020 (1100) PAGE 3 Signed Report- XR RIBS UNI 2 V [id number] 15:00:00 FAX: Rebecca Coronel [phone] [place]: St: REG Name: JACQUIE HANKINS [facility] : 1940 Age/S: 79/F [address] Unit#: [id number] Loc: [place] [address] Phys: Jaquelin Yoder MD Acct: [id number] Dis Date: Status: REG CLI PHONE #: [phone] Exam Date: 01/14/2020 1433 FAX #: [phone] Reason: OTHER CHEST PAIN EXAMS: CPT CODE: [id number] XR RIBS UNI 2 [place] [address] EXAM: LEFT RIBS 2 VIEWS INDICATION: CHEST PAIN LOCATION: B2 COMPARISON: October 23, 2018 TECHNIQUE: AP and oblique views of the left ribs. FINDINGS: No acute fracture or dislocation is identified. No osseous lesion is identified. The thoracic cavity is normal with no pneumothorax.No soft tissue abnormality. No joint effusion. IMPRESSION: No displac ed rib fractures are identified. at 1500 Reported and signed by: Alicia Drake MD CC: Jaquelin Yoder MD Technologist: Digna Vilchis Trnctrd Date/Time/By: 01/14/2020 (1500) : By: 16 PAGE 1 Signed Report FAX: Rebecca Coronel [phone] [place]: St: REG -- Name: JACQUIE HANKINS [facility] : 1940 Age/S: 79/F [address] Unit #: [id number] Loc: [place] [address] Phys: Jaquelin Nieto MD Acct: [id number] Dis Date: Status: REG CLI PHONE #: [phone] Exam Date: 01/14/2020 1433 FAX #: [phone] Reason: OTHER CHEST PAIN EXAMS: CPT CODE: [id number] XR RIBS UNI [place] [address] <Continued> Orig Print D/T: S: 01/14/2020 (4941) PAGE 2 Signed Report- XR T-SPINE 3 [id number] 14:59:00 FAX: Rebecca Coronel [phone] [place]: St: REG Name: JACQUIE HANKINS : 1940 Age/S: 79/F [address] Unit#: [id number] Loc: [place] [address] Phys: Jaquelin Yoder MD Acct: [id number] Dis Date: Status: REG CLI PHONE #: [phone] Exam Date: 01/14/2020 1422 FAX #: [phone] Reason: PAIN IN THORACIC SPINE EXAMS: CPT CODE: [id number] XR T-SPINE 3 VIEWS 59109 EXAM: XR THORACIC SPINE 3 VIEWS INDICATION: PAININ THORACIC SPINE LOCATION: B2 COMPARISON: Chest radiograph dated October 23, 2018 TECHNIQUE: AP, swimmer's and lateral radiographs of the thoracic spine DISCUSSION: There are chronic compression fractures in the midthoracic spine withpost vertebroplasty changes noted. The vertebral bodies are normal in height, alignment and density. Facet joints and spinous processes are in normal alignment. 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 No soft tissue abnormality. 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 Chronic compression fractures in the midthoracic spine with post vertebroplasty changes. at 5175 Reported and signed by: Alicia Drake MD CC: Jaquelin Yoder MD Technologist: Digna Vilchis Trnscrd Date/Time/By: 01/14/2020 (5255) : By: 16 PAGE 1 Signed Report FAX: Rebecca Coronel [phone] [place]: St: REG Name: JACQUIE HANKINS [facility] : 1940 Age/S: 79/F [address] Unit #: [id number] Loc: [place] [address] Phys: Jaquelin Yoder MD Acct: [id number] Dis Date: Status: REG CLI PHONE #: [phone] Exam Date: 01/14/2020 1422 F AX #: [phone] Reason: PAIN IN THORACIC SPINE EXAMS: CPT CODE: [id number] XR T-SPINE 3 VIEWS 88320 <Continued> Orig Print D/T: S: 01/14/2020 (1505) PAGE 2 Signed Report- XR ABDOMEN 1 [id number] 14:59:00 FAX: Rebecca Coronel [phone] [place]: St: REG Name: JACQUIE HANKINS [facility] : 1940 Age/S: 79/F [address] Unit#: [id number] Loc: [place] [address] Phys: Jaquelin Yoder MD Acct: [id number] Dis Date: Status: REG CLI PHONE #: [phone] Exam Date: 01/14/2020 1422 FAX #: [phone] Reason: OTHER CHEST PAIN EXAMS: CPT CODE: [id number] XR ABDOMEN 1 V 00523 Abdomen one view Location code:J9 HISTORY:OTHER CHEST PAIN Comparison:None available Findings: Prior vertebroplasty in the lower thoracic spine Gas and stool is seen within nondilated loops of large bowel to level the rectum. Few gas distended loops of small bowel are also visualized. There is no free intraperitoneal air on limited supine view. No radiopacities are identified within the abdomen. There is no organomegaly. Skeletal structures are within normal limits. IMPRESSION: No acute findings. at 3963 Reported and signed by: Bowen Watkins MD CC: Jaquelin collazo MD Technologist: Digna Vilchis [facility] Date/Time/By: 01/14/2020 (5214) : By: [email or web address] PAGE 1 Signed Report FAX: Rebecca Coronel [phone] [place]: St: REG----- Name: JACQUIE HANKINS [facility] : 1940 Age/S: 79/F [address] Unit #: [id number] Loc: [place] [address] Phys: Jaquelin Nieto MD Acct: [id number] Dis Date: Status: REG CLI PHONE #: [phone] Exam Date: 01/14/2020 1422 FAX #: [phone] Reason: OTHER CHEST PAIN EXAMS: CPT CODE: [id number] XR ABDOMEN 1 V 00399 <Continued> Orig Print D/T: S: 01/14/2020 (8607) PAGE 2 Signed Report- XR CHEST 2 [id number] 14:59:00 FAX: Rebecca Coronel [phone] [place]: St: REG Name: JACQUIE HANKINS [facility] : 1940 Age/S: 79/F [address] Unit#: [id number] Loc: [place] [address] Phys: Jaquelin Yoder MD Acct: [id number] Dis Date: Status: REG CLI PHONE #: [phone] Exam Date: 01/14/2020 1422 FAX #: [phone] Reason: OTHER CHEST PAIN EXAMS: CPT CODE: [id number] XR CHEST 2 V 87655 EXAM: CHEST 2 VIEWS INDICATION: CHEST PAIN LOCATION: B2 COMPARISON: October 23, 2018 TECHNIQUE: PA and lateral views of the chest. FINDINGS: The heart size is normal. The lungs are clear bilaterally. The pulmonary vasculature is normal. No pneumothorax or pleural effusion isidentified. There are compression fractures in the midthoracic spine with post vertebroplastychanges noted. Right shoulder arthroplasty is noted in place. IMPRESSION: No acute cardiopulmonary process. at 8223 Reported and signed by: Alicia Drake MD CC: Jaquelin Yoder MD Technologist: Digna Vilchis Trnscrd Date/Time/By: 01/14/2020 (1335) : By: 16 PAGE 1 Signed Report FAX: Rebecca Calhoun [phone] [place]: St: REG --- Name: JACQUIE HANKINS [facility] : 1940 Age/S: 79/F [address] Unit #: [id number] Loc: [place] [address] Phys: Jaquelin Nieto MD Acct: [id number] Dis Date: Status: REG CLI PHONE #: [phone] Exam Date: 01/14/2020 1422 FAX #: [phone] Reason: OTHER CHEST PAIN EXAMS: CPT CODE: [id number] XR CHEST 2 V 56635 <Continued> Orig Print D/T: S: 01/14/2020 (1502) PAGE 2 Signed [id number] 16:55:00 Test Item Value Reference Range Interpretation Comments GLUBED (test code = GLUBED) 267 MG/DL 74-106 H [id number] 12:12:00 Test Item Value Reference Range Interpretation Comments GLUBED (test code = GLUBED) 211 MG/DL 74-106 H [id number] 08:45:00 Test Item Value Reference Range Interpretation Comments GLUBED (test code = GLUBED) 175 MG/DL 74-106 H UR SODIUM [id number] 06:31:00 Test Item Value Reference Range Interpretation Comments UR SODIUM RANDOM 81 mmol/L 30-90 N 24hr: 40-22 0 (test code = JOSIAH) mmol/Padmini ndom: 30-90 mmol/L UR PROTEIN [id number] 06:31:00 Test Item Value Reference Range Interpretation Comments UR PROTEIN RANDOM 86 mg/dL 0-11 H ~~~~~~~~~~ ~~~~~~~~~~~~~ (test code = PROTU) ~~~~~~~~ ~~~~~~~~~~~~~~~ ~~~~~~~~~~~Repo rted result verified with auto diltuion procedure.~~~~~ ~~~~~~~~ ~~~~~~~~~~~~~~~ ~~~~~~~~ ~~~~~~~~~~~~~~~ ~~~~~~ UR MICROALBUMIN/CREAT [id number] 06:31:00 Test Item Value Reference Range Interpretation Comments MICROALBUMIN QUANT 41.4 mg/dL 0-1.6 H (test code = ALBU) UR CREATININE RANDOM 44.1 mg/dL ~~~~~~~ ~~~~~~~~~~~~~ (test code = CREATU) ~~~~~~~ ~~~~~~~~~~~~~ ~~~~~~~~~~~~~~~ ~~~~T his test has be en performed on a fluid type that has nopublished nor mal reference range s. Please evaluate theseresults on an individual basis.~~~~~~~~~ ~~~~~ ~~~~~~~~~~~~~~~ ~~~~~ ~~~~~~~~~~~~~~~ ~~~~~ ~~~~~ UR MICROALB/CREAT 938.0 mg/g 0.0-30.0 H RATIO (test code = cre MICALB:CRE) UR SODIUM [id number] 05:57:00 Test Item Value Reference Range Interpretation Comments UR SODIUM RANDOM 81 mmol/L 30-90 N 24hr: 40-22 0 (test code = JOSIAH) mmol/Padmini ndom: 30-90 mmol/L UR PROTEIN [id number] 05:57:00 Test Item Value Reference Range Interpretation Comments UR PROTEIN RANDOM 86 mg/dL 0-11 H ~~~~~~~~~~ ~~~~~~~~~~~~~ (test code = PROTU) ~~~~~~~~ ~~~~~~~~~~~~~~~ ~~~~~~~~~~~Repo rted result verified with auto diltuion procedure.~~~~~ ~~~~~~~~ ~~~~~~~~~~~~~~~ ~~~~~~~~ ~~~~~~~~~~~~~~~ ~~~~~~ UR MICROALBUMIN/CREAT [id number] 05:57:00 Test Item Value Reference Range Interpretation Comments MICROALBUMIN QUANT mg/dL 0-1.6 (test code = ALBU) UR CREATININE RANDOM 44.1 mg/dL ~~~~~~~ ~~~~~~~~~~~~~~ (test code = CREATU) ~~~~~~~ ~~~~~~~~~~~~~~ ~~~~~~~~~~~~~~~ ~~This test has been performed on a fluid type that has nopublished nor mal reference range s. Please evaluate theseresults on an individual basis.~~~~~~~~~ ~~~~~~ ~~~~~~~~~~~~~~~ ~~~~~~ ~~~~~~~~~~~~~~~ ~~~~~~ ~~ UR MICROALB/CREAT mg/g cre 0.0-30.0 RATIO (test code = MICALB:CRE) COMPREHENSIVE METABOLIC [id number] 05:57:00 Test Item Value Reference Range Interpretation Comments SODIUM (test code = 139 mmol/L 137-145 N NA) POTASSIUM (test code = 3.7 mmol/L 3.4-5.0 N K) CHLORIDE (test code = 98 mmol/L 98-107 N CL) CARBON DIOXIDE (test 32 mmol/L 22-30 H code = CO2) GLUCOSE (test code = 152 mg/dL 74-106 H GLU) BLOOD UREA NITROGEN 35 mg/dL 7-17 H (test code = BUN) GLOMERULAR FILTRATION 24 >60 L The es timated RATE (test code = GFR) glome rular filtration rate is compute d usingpatient ra ce, age (>18), sex, and serum creatinin e. If anyof the neede d data elements are mi ssing the Laboratory cannot compute an veronica mation of the glomerul ar filtration rate . CREATININE (test code 2.1 mg/dL 0.5-1.0 H = CREAT) TOTAL PROTEIN (test 6.4 g/dL 6.3-8.2 N code = PROT) ALBUMIN (test code = 3.5 g/dL 3.5-5.0 N ALB) CALCIUM (test code = 9.5 mg/dL 8.4-10.2 N CA) BILIRUBIN TOTAL (test 0.3 mg/dL 0.2-1.3 N code = BILT) BILIRUBIN CONJUGATED 0 mg/dL 0-0.3 N ~~~~~~~ ~~~~~~~~~~~~~~ (test code = BILCON) ~~~~~~~ ~~~~~~~~~~~~~~ ~~~~~~~~~~~~~~~ ~~~CON JUGATED BILIRUB IN IS THE REPLACEMENT ASSAY FOR DIRECTBILIRUBIN .~~~~~ ~~~~~~~~~~~~~~~ ~~~~~~ ~~~~~~~~~~~~~~~ ~~~~~~ ~~~~~~~~~~~~~ BILIRUBIN UNCONJUGATED 0 mg/dL 0-1.1 N (test code = BILUNC) SGOT/AST (test code = 24 U/L 15-46 N AST) SGPT/ALT (test code = 22 U/L 13-69 N ALT) ALKALINE PHOSPHATASE 51 U/L 38-126 N (test code = ALKP) [id number] 05:57:00 Test Item Value Reference Range Interpretation Comments MAGNESIUM (test code = MAG) 2.3 mg/dL 1.6-2.3 N COMPREHENSIVE METABOLIC [id number] 05:55:00 Test Item Value Reference Range Interpretation Comments SODIUM (test code = 139 mmol/L 137-145 N NA) POTASSIUM (test code = 3.7 mmol/L 3.4-5.0 N K) CHLORIDE (test code = 98 mmol/L 98-107 N CL) CARBON DIOXIDE (test 32 mmol/L 22-30 H code = CO2) GLUCOSE (test code = 152 mg/dL 74-106 H GLU) BLOOD UREA NITROGEN 35 mg/dL 7-17 H (test code = BUN) GLOMERULAR FILTRATION 24 >60 L The es timated RATE (test code = GFR) glome rular filtration rate is compute d usingpatient ra ce, age (>18), sex, and serum creatinin e. If anyof the neede d data elements are mi ssing the Laboratory cannot compute an veronica mation of the glomerul ar filtration rate . CREATININE (test code 2.1 mg/dL 0.5-1.0 H = CREAT) TOTAL PROTEIN (test 6.4 g/dL 6.3-8.2 N code = PROT) ALBUMIN (test code = 3.5 g/dL 3.5-5.0 N ALB) CALCIUM (test code = 9.5 mg/dL 8.4-10.2 N CA) BILIRUBIN TOTAL (test 0.3 mg/dL 0.2-1.3 N code = BILT) BILIRUBIN CONJUGATED 0 mg/dL 0-0.3 N ~~~~~~~ ~~~~~~~~~~~~~~ (test code = BILCON) ~~~~~~~ ~~~~~~~~~~~~~~ ~~~~~~~~~~~~~~~ ~~~CON JUGATED BILIRUB IN IS THE REPLACEMENT ASSAY FOR DIRECTBILIRUBIN .~~~~~ ~~~~~~~~~~~~~~~ ~~~~~~ ~~~~~~~~~~~~~~~ ~~~~~~ ~~~~~~~~~~~~~ BILIRUBIN UNCONJUGATED 0 mg/dL 0-1.1 N (test code = BILUNC) SGOT/AST (test code = 24 U/L 15-46 N AST) SGPT/ALT (test code = 22 U/L 13-69 N ALT) ALKALINE PHOSPHATASE 51 U/L 38-126 N (test code = ALKP) [id number] 05:55:00 Test Item Value Reference Range Interpretation Comments MAGNESIUM (test code = MAG) mg/dL 1.6-2.3 CBC W/AUTO [id number] 05:36:00 Test Item Value Reference Range Interpretation Comments WHITE BLOOD CELL (test code = 6.6 x10 3/uL 5.0-12.0 N WBC) RED BLOOD CELL (test code = 3.49 x10 6/uL 4.20-5.40 L RBC) HEMOGLOBIN (test code = HGB) 9.3 g/dL 12.0-16.0 L HEMATOCRIT (test code = HCT) 30.0 % 36.0-46.0 L MEAN CELL VOLUME (test code = 86 fL 81-99 N MCV) MEAN CELL HGB (test code = MCH) 26.6 pg 27-31 L MEAN CELL HGB CONCENTRATION 31.0 g/dL 33-37 L (test code = MCHC) RED CELL DISTRIBUTION WIDTH 15.6 % 11.5-15.5 H (test code = RDW) PLATELET COUNT (test code = 364 x10 3/uL 130-400 N PLT) MEAN PLATELET VOLUME (test code 10.4 fL 9.4-16.4 N = MPV) NEUTROPHIL % (test code = NT%) 58.1 % 43-65 N IMMATURE GRANULOCYTE % (test 2.4 % 0.0-2.0 H code = IG%) LYMPHOCYTE % (test code = LY%) 17.7 % 20.5-45.5 L MONOCYTE % (test code = MO%) 16.9 % 5.5-11.7 H EOSINOPHIL % (test code = EO%) 4.4 % 0.9-2.9 H BASOPHIL % (test code = BA%) 0.5 % 0.2-1.0 N NUCLEATED RBC % (test code = 0.0 % 0-1.0 N NRBC%) NEUTROPHIL # (test code = NT#) 3.84 x10 3/uL 2.2-4.8 N IMMATURE GRANULOCYTE # (test 0.16 x10 3/uL 0-0.03 H code = IG#) LYMPHOCYTE # (test code = LY#) 1.17 x10 3/uL 1.3-2.9 L MONOCYTE # (test code = MO#) 1.12 x10 3/uL 0.3-0.8 H EOSINOPHIL # (test code = EO#) 0.29 x10 3/uL 0.0-0.2 H BASOPHIL # (test code = BA#) 0.03 x10 3/uL 0.0-0.1 N [id number] 20:23:00 Test Item Value Reference Range Interpretation Comments GLUBED (test code = GLUBED) 262 MG/DL 74-106 H [id number] 16:59:00 Test Item Value Reference Range Interpretation Comments GLUBED (test code = GLUBED) 212 MG/DL 74-106 H [id number] 12:41:00 Test Item Value Reference Range Interpretation Comments GLUBED (test code = GLUBED) 234 MG/DL 74-106 H [id number] 10:03:00 Test Item Value Reference Range Interpretation Comments GLUBED (test code = GLUBED) 169 MG/DL 74-106 H - XR CHEST 2 [id number] 09:35:00 FAX: Rebecca Coronel [phone] [place]: [facility]: ADM FAX: Sam Bean MD [phone] Name: JACQUIE HANKINS [facility] : 1940 Age/S: 78/F [address] Unit #: [id number] Loc: C.[address] [place] [address] Phys: Sam Crawley MD Acct: C [id number] Dis Date: Status: ADM IN PHONE #: [phone] Exam Date: 10/23/2018 09 FAX #: [phone] Reason: chf EXAMS: CPT CODE: [id number] XR CHEST 2 V 29701 EXAM: - XR C HEST 2 V HISTORY: CHF Location code:C3 COMPARISON: 10/19/2018 FINDINGS: PA and lateral view of the chest is provided. Right shoulder arthroplasty with areas of vertebral cement are again seen. There is decreased pulmonary vascular congestion and cardiomegaly with decreasing pleural effusions. Trace effusions persist. No pneumothorax is seen. IMPRESSION: 1. Decreasing CHF. Electronically Signed by Shahab Prado MD on10/23/2018 at 0935 Reported and signed by: Triston Prado CC: Jaquelin Yoder MD; Sam Crawley MD Technologist: Rob Avina Trnctrd Date/Time/By: 10/23/2018 (0935) : By: [email or web address] PAGE 1 Signed Report FAX: Rebecca Coronel [phone] [place]: [facility]: ADM FAX: Sam Bean MD [phone] Name: JACQUIE HANKINS [facility] : 1940 Age/S: 78/F [address] Unit #: [id number] Loc: C.[address] [place] [address] Phys: Sam Crawley MD Acct: [id number] Dis Date: Status: ADM IN PHONE #: [phone] Exam Date: 10/23/2018901 FAX #: [phone] Reason: chf EXAMS: CPT CODE: [id number] XR CHEST 2V 37238 <Continued> Orig Print D/T: S: 10/23/2018 (0939) PAGE 2 Signed ReportCOMPREHENSIVE METABOLIC [id number] 05:06:00 Test Item Value Reference Range Interpretation Comments SODIUM (test code = 138 mmol/L 137-145 N NA) POTASSIUM (test code = 3.2 mmol/L 3.4-5.0 L K) CHLORIDE (test code = 98 mmol/L 98-107 N CL) CARBON DIOXIDE (test 31 mmol/L 22-30 H code = CO2) GLUCOSE (test code = 155 mg/dL 74-106 H GLU) BLOOD UREA NITROGEN 36 mg/dL 7-17 H (test code = BUN) GLOMERULAR FILTRATION 26 >60 L The es timated RATE (test code = GFR) glome rular filtration rate is compute d usingpatient ra ce, age (>18), sex, and serum creatinin e. If anyof the neede d data elements are mi ssing the Laboratory cannot compute an veronica mation of the glomerul ar filtration rate . CREATININE (test code 2.0 mg/dL 0.5-1.0 H = CREAT) TOTAL PROTEIN (test 6.3 g/dL 6.3-8.2 N code = PROT) ALBUMIN (test code = 3.4 g/dL 3.5-5.0 L ALB) CALCIUM (test code = 8.9 mg/dL 8.4-10.2 N CA) BILIRUBIN TOTAL (test 0.4 mg/dL 0.2-1.3 N code = BILT) BILIRUBIN CONJUGATED 0 mg/dL 0-0.3 N ~~~~~~~ ~~~~~~~~~~~~~~ (test code = BILCON) ~~~~~~~ ~~~~~~~~~~~~~~ ~~~~~~~~~~~~~~~ ~~~CON JUGATED BILIRUB IN IS THE REPLACEMENT ASSAY FOR DIRECTBILIRUBIN .~~~~~ ~~~~~~~~~~~~~~~ ~~~~~~ ~~~~~~~~~~~~~~~ ~~~~~~ ~~~~~~~~~~~~~ BILIRUBIN UNCONJUGATED 0 mg/dL 0-1.1 N (test code = BILUNC) SGOT/AST (test code = 21 U/L 15-46 N AST) SGPT/ALT (test code = 17 U/L 13-69 N ALT) ALKALINE PHOSPHATASE 52 U/L 38-126 N (test code = ALKP) Last PROBNP result: 7800 g/dL on 10/19/18 - [id number] 05:06:00 Test Item Value Reference Range Interpretation Comments MAGNESIUM (test code = MAG) 1.8 mg/dL 1.6-2.3 N Last PROBNP result: 7800 g/dL on 10/19/181100NT PRO-BRAIN NATRIURETIC PEPTI 2018-10-23 05:06:00 Test Item Value Reference Range Interpretation Comments NT PRO-BRAIN 3640 pg/mL 0-299 H ~~~~~~~~~~~~~~~ ~~~~~~~~ NATRIURETIC PEPTI ~~~~~~~~~~ ~~~~~~~~~~~~~ (test code = PROBNP) ~~~~~~~ ~~~~~~~NT PRO-BNP IS THE REPLACEMENT ASS AY FOR BNP.~~~~~~~~~~~ ~~~~~~~~ ~~~~~~~~~~~~~~~ ~~~~~~~~ ~~~~~~~~~~~~~~~ ~~~RULE- IN CUT POINTS F OR PATIENTS WITH S USPECTED ACUTECONGESTIVE HEART FAILURE:<50 yrs old: >450 pg/mL50-75 yrs old: >900 pg/mL >75 yrs old: >1800 pg/mL A positive bias m ay occur on patients clair ing BIOTINsupplemen ts. Last PROBNP result: 7800 g/dL on 10/19/18 - 1COMPREHENSIVE METABOLIC PANEL 2018-10-23 05:03:00 Test Item Value Reference Range Interpretation Comments SODIUM (test code = 138 mmol/L 137-145 N NA) POTASSIUM (test code = 3.2 mmol/L 3.4-5.0 L K) CHLORIDE (test code = 98 mmol/L 98-107 N CL) CARBON DIOXIDE (test 31 mmol/L 22-30 H code = CO2) GLUCOSE (test code = 155 mg/dL 74-106 H GLU) BLOOD UREA NITROGEN 36 mg/dL 7-17 H (test code = BUN) GLOMERULAR FILTRATION 26 >60 L The es timated RATE (test code = GFR) glome rular filtration rate is compute d usingpatient ra ce, age (>18), sex, and serum creatinin e. If anyof the neede d data elements are mi ssing the Laboratory cannot compute an veronica mation of the glomerul ar filtration rate . CREATININE (test code 2.0 mg/dL 0.5-1.0 H = CREAT) TOTAL PROTEIN (test 6.3 g/dL 6.3-8.2 N code = PROT) ALBUMIN (test code = 3.4 g/dL 3.5-5.0 L ALB) CALCIUM (test code = 8.9 mg/dL 8.4-10.2 N CA) BILIRUBIN TOTAL (test 0.4 mg/dL 0.2-1.3 N code = BILT) BILIRUBIN CONJUGATED 0 mg/dL 0-0.3 N ~~~~~~~ ~~~~~~~~~~~~~~ (test code = BILCON) ~~~~~~~ ~~~~~~~~~~~~~~ ~~~~~~~~~~~~~~~ ~~~CON JUGATED BILIRUB IN IS THE REPLACEMENT ASSAY FOR DIRECTBILIRUBIN .~~~~~ ~~~~~~~~~~~~~~~ ~~~~~~ ~~~~~~~~~~~~~~~ ~~~~~~ ~~~~~~~~~~~~~ BILIRUBIN UNCONJUGATED 0 mg/dL 0-1.1 N (test code = BILUNC) SGOT/AST (test code = 21 U/L 15-46 N AST) SGPT/ALT (test code = 17 U/L 13-69 N ALT) ALKALINE PHOSPHATASE 52 U/L 38-126 N (test code = ALKP) Last PROBNP result: 7800 g/dL on 10/19/18 - [id number] 05:03:00 Test Item Value Reference Range Interpretation Comments MAGNESIUM (test code = MAG) 1.8 mg/dL 1.6-2.3 N Last PROBNP result: 7800 g/dL on 10/19/181100NT PRO-BRAIN NATRIURETIC PEPTI 2018-10-23 05:03:00 Test Item Value Reference Range Interpretation Comments NT PRO-BRAIN NATRIURETIC PEPTI (test pg/mL 0-299 code = PROBNP) Last PROBNP result: 7800 g/dL on 10/19/18 - OMPREHENSIVE METABOLIC PANEL 2018-10-23 05:02:00 Test Item Value Reference Range Interpretation Comments SODIUM (test code = 138 mmol/L 137-145 N NA) POTASSIUM (test code = 3.2 mmol/L 3.4-5.0 L K) CHLORIDE (test code = 98 mmol/L 98-107 N CL) CARBON DIOXIDE (test 31 mmol/L 22-30 H code = CO2) GLUCOSE (test code = 155 mg/dL 74-106 H GLU) BLOOD UREA NITROGEN 36 mg/dL 7-17 H (test code = BUN) GLOMERULAR FILTRATION 26 >60 L The es timated RATE (test code = GFR) glome rular filtration rate is compute d usingpatient ra ce, age (>18), sex, and serum creatinin e. If anyof the neede d data elements are mi ssing the Laboratory cannot compute an veronica mation of the glomerul ar filtration rate . CREATININE (test code 2.0 mg/dL 0.5-1.0 H = CREAT) TOTAL PROTEIN (test 6.3 g/dL 6.3-8.2 N code = PROT) ALBUMIN (test code = 3.4 g/dL 3.5-5.0 L ALB) CALCIUM (test code = 8.9 mg/dL 8.4-10.2 N CA) BILIRUBIN TOTAL (test 0.4 mg/dL 0.2-1.3 N code = BILT) BILIRUBIN CONJUGATED 0 mg/dL 0-0.3 N ~~~~~~~ ~~~~~~~~~~~~~~ (test code = BILCON) ~~~~~~~ ~~~~~~~~~~~~~~ ~~~~~~~~~~~~~~~ ~~~CON JUGATED BILIRUB IN IS THE REPLACEMENT ASSAY FOR DIRECTBILIRUBIN .~~~~~ ~~~~~~~~~~~~~~~ ~~~~~~ ~~~~~~~~~~~~~~~ ~~~~~~ ~~~~~~~~~~~~~ BILIRUBIN UNCONJUGATED 0 mg/dL 0-1.1 N (test code = BILUNC) SGOT/AST (test code = 21 U/L 15-46 N AST) SGPT/ALT (test code = 17 U/L 13-69 N ALT) ALKALINE PHOSPHATASE 52 U/L 38-126 N (test code = ALKP) Last PROBNP result: 7800 g/dL on 10/19/18 - [id number] 05:02:00 Test Item Value Reference Range Interpretation Comments MAGNESIUM (test code = MAG) mg/dL 1.6-2.3 Last PROBNP result: 7800 g/dL on 10/19/18 - [id number] PRO-BRAIN NATRIURETIC PEPTI 2018-10-23 05:02:00 Test Item Value Reference Range Interpretation Comments NT PRO-BRAIN NATRIURETIC PEPTI (test pg/mL 0-299 code = PROBNP) Last PROBNP result: 7800 g/dL on 10/19/18 - [id number] W/AUTO [id number] 04:42:00 Test Item Value Reference Range Interpretation Comments WHITE BLOOD CELL (test code = 5.5 x10 3/uL 5.0-12.0 N WBC) RED BLOOD CELL (test code = 3.30 x10 6/uL 4.20-5.40 L RBC) HEMOGLOBIN (test code = HGB) 8.8 g/dL 12.0-16.0 L HEMATOCRIT (test code = HCT) 28.2 % 36.0-46.0 L MEAN CELL VOLUME (test code = 86 fL 81-99 N MCV) MEAN CELL HGB (test code = MCH) 26.7 pg 27-31 L MEAN CELL HGB CONCENTRATION 31.2 g/dL 33-37 L (test code = MCHC) RED CELL DISTRIBUTION WIDTH 15.5 % 11.5-15.5 N (test code = RDW) PLATELET COUNT (test code = 324 x10 3/uL 130-400 N PLT) MEAN PLATELET VOLUME (test code 10.7 fL 9.4-16.4 N = MPV) NEUTROPHIL % (test code = NT%) 59.8 % 43-65 N IMMATURE GRANULOCYTE % (test 0.9 % 0.0-2.0 N code = IG%) LYMPHOCYTE % (test code = LY%) 18.1 % 20.5-45.5 L MONOCYTE % (test code = MO%) 16.3 % 5.5-11.7 H EOSINOPHIL % (test code = EO%) 4.4 % 0.9-2.9 H BASOPHIL % (test code = BA%) 0.5 % 0.2-1.0 N NUCLEATED RBC % (test code = 0.0 % 0-1.0 N NRBC%) NEUTROPHIL # (test code = NT#) 3.29 x10 3/uL 2.2-4.8 N IMMATURE GRANULOCYTE # (test 0.05 x10 3/uL 0-0.03 H code = IG#) LYMPHOCYTE # (test code = LY#) 1.00 x10 3/uL 1.3-2.9 L MONOCYTE # (test code = MO#) 0.90 x10 3/uL 0.3-0.8 H EOSINOPHIL # (test code = EO#) 0.24 x10 3/uL 0.0-0.2 H BASOPHIL # (test code = BA#) 0.03 x10 3/uL 0.0-0.1 N [id number] 21:28:00 Test Item Value Reference Range Interpretation Comments GLUBED (test code = GLUBED) 258 MG/DL 74-106 H [id number] 16:10:00 Test Item Value Reference Range Interpretation Comments FERRITIN (test code = KARLA) 50.9 ng/mL 11.1-264 N [id number] 16:01:00 Test Item Value Reference Range Interpretation Comments GLUBED (test code = GLUBED) 240 MG/DL 74-106 H CARDIAC ENZYMES [id number] 15:42:00 Test Item Value Reference Range Interpretation Comments CREATINE KINASE < 30 U/L 30-135 L (CK) (test code = CK) CKMB (test code = 0.26 ng/mL 0.5-5.0 L CKMBT) TROPONIN-I (test < 0.012 ng/mL 0.012-0.033 L code = TROPI) P carlosase be advised of the updated reference range s for the new Material Manager ry instrumentation . VITROS TROPO LOLI I CRITERIANORM AL PATIENT W/O CIR CULATING TNI: 0.012-0.03 3 ng/mLCIRCULATIN G TNI PRESENT: 0.034- 0.119 ng/mL(MAY BE AT RISK OF AMI)AMI DIAGNOS TIC CUTOFF: >/= 0.1 20 ng/mL~~~~~~~~~~ ~~~~~~~~ ~~~~~~~~~~~~~~~ ~~~~~~~~ ~~~~~~~~~~~~~~~ ~~~The use of serial s ampling and testing pro tocol is arecommended practice.An stacy vated troponin level alone is often not suffi cient fordiagnosis of myocardial infa rction. Troponin result s obtained by dif ferent assays may vary.Evaluation of the extent of myoca rdial damage based on increase of troponin wou ld be valid only if similarmethodol ogy is used.~~~~~~~~~~ ~~~~~~~~ ~~~~~~~~~~~~~~~ ~~~~~~~~ ~~~~~~~~~~~~~~~ ~~~ Spec Comments: Cancel third set if POC Troponin completed in EDFE W/TOTAL IRON BINDING CAP.2018-10-22 15:40:00 Test Item Value Reference Range Interpretation Comments IRON (test code = IRON) 21 ug/dL 37-170 L TOTAL IRON BINDING CAPACITY (test 386 ug/dL 265-497 N code = TIBC) IRON SATURATION (test code = FESAT) 5 % 20-55 L FE W/TOTAL IRON BINDING CAP.2018-10-22 15:32:00 Test Item Value Reference Range Interpretation Comments IRON (test code = IRON) 21 ug/dL 37-170 L TOTAL IRON BINDING CAPACITY (test ug/dL 265-497 code = TIBC) IRON SATURATION (test code = FESAT) % 20-55 [id number] 15:32:00 Test Item Value Reference Range Interpretation Comments IRON (test code = IRON) 20 ug/dL 37-170 L CARDIAC ENZYMES [id number] 15:32:00 Test Item Value Reference Range Interpretation Comments CREATINE KINASE (CK) (test code = < 30 U/L 30-135 L CK) CKMB (test code = CKMBT) ng/mL 0.5-5.0 TROPONIN-I (test code = TROPI) ng/mL 0.012-0.033 Spec Comments: Cancel third set if POC Troponin completed in ED [id number] 11:13:00 Test Item Value Reference Range Interpretation Comments GLUBED (test code = GLUBED) 203 MG/DL 74-106 H [id number] 06:14:00 Test Item Value Reference Range Interpretation Comments GLUBED (test code = GLUBED) 140 MG/DL 74-106 H [id number] 20:28:00 Test Item Value Reference Range Interpretation Comments GLUBED (test code = GLUBED) 191 MG/DL 74-106 H THYROID STIMULATING [id number] 19:14:00 Test Item Value Reference Range Interpretation Comments THYROID STIMULATING 1.850 mIU/L 0.465-4.68 N HORMONE (test code = TSH) A positive b ias may occur for patients taking BIOTINsupplemen ts.* BASIC METABOLIC [id number] 18:46:00 Test Item Value Reference Range Interpretation Comments SODIUM (test code = 136 mmol/L 137-145 L NA) POTASSIUM (test code 4.1 mmol/L 3.4-5.0 N = K) CHLORIDE (test code = 100 mmol/L 98-107 N CL) CARBON DIOXIDE (test 25 mmol/L 22-30 N code = CO2) GLUCOSE (test code = 203 mg/dL 74-106 H GLU) BLOOD UREA NITROGEN 35 mg/dL 7-17 H (test code = BUN) GLOMERULAR FILTRATION 26 >60 L The es timated RATE (test code = glomerular filtration GFR) rate is compute d usingpatient ra ce, age (>18), sex, and serum creatinine. If anyof the needed data elements are mi ssing the Laboratory cannot compute an veronica mation of the glomerul ar filtration rate . CREATININE (test code 2.0 mg/dL 0.5-1.0 H = CREAT) CALCIUM (test code = 8.5 mg/dL 8.4-10.2 N CA) [id number] 18:46:00 Test Item Value Reference Range Interpretation Comments MAGNESIUM (test code = MAG) 1.6 mg/dL 1.6-2.3 N BASIC METABOLIC [id number] 18:45:00 Test Item Value Reference Range Interpretation Comments SODIUM (test code = 136 mmol/L 137-145 L NA) POTASSIUM (test code 4.1 mmol/L 3.4-5.0 N = K) CHLORIDE (test code = 100 mmol/L 98-107 N CL) CARBON DIOXIDE (test 25 mmol/L 22-30 N code = CO2) GLUCOSE (test code = 203 mg/dL 74-106 H GLU) BLOOD UREA NITROGEN 35 mg/dL 7-17 H (test code = BUN) GLOMERULAR FILTRATION 26 >60 L The es timated RATE (test code = glomerular filtration GFR) rate is compute d usingpatient ra ce, age (>18), sex, and serum creatinine. If anyof the needed data elements are mi ssing the Laboratory cannot compute an veronica mation of the glomerul ar filtration rate . CREATININE (test code 2.0 mg/dL 0.5-1.0 H = CREAT) CALCIUM (test code = 8.5 mg/dL 8.4-10.2 N CA) [id number] 18:45:00 Test Item Value Reference Range Interpretation Comments MAGNESIUM (test code = MAG) mg/dL 1.6-2.3 CBC W/AUTO [id number] 18:31:00 Test Item Value Reference Range Interpretation Comments WHITE BLOOD CELL (test code = 7.0 x10 3/uL 5.0-12.0 N WBC) RED BLOOD CELL (test code = 3.12 x10 6/uL 4.20-5.40 L RBC) HEMOGLOBIN (test code = HGB) 8.6 g/dL 12.0-16.0 L HEMATOCRIT (test code = HCT) 26.8 % 36.0-46.0 L MEAN CELL VOLUME (test code = 86 fL 81-99 N MCV) MEAN CELL HGB (test code = MCH) 27.6 pg 27-31 N MEAN CELL HGB CONCENTRATION 32.1 g/dL 33-37 L (test code = MCHC) RED CELL DISTRIBUTION WIDTH 16.0 % 11.5-15.5 H (test code = RDW) PLATELET COUNT (test code = 300 x10 3/uL 130-400 N PLT) MEAN PLATELET VOLUME (test code 10.4 fL 9.4-16.4 N = MPV) NEUTROPHIL % (test code = NT%) 74.6 % 43-65 H IMMATURE GRANULOCYTE % (test 0.7 % 0.0-2.0 N code = IG%) LYMPHOCYTE % (test code = LY%) 10.4 % 20.5-45.5 L MONOCYTE % (test code = MO%) 11.1 % 5.5-11.7 N EOSINOPHIL % (test code = EO%) 2.8 % 0.9-2.9 N BASOPHIL % (test code = BA%) 0.4 % 0.2-1.0 N NUCLEATED RBC % (test code = 0.0 % 0-1.0 N NRBC%) NEUTROPHIL # (test code = NT#) 5.24 x10 3/uL 2.2-4.8 H IMMATURE GRANULOCYTE # (test 0.05 x10 3/uL 0-0.03 H code = IG#) LYMPHOCYTE # (test code = LY#) 0.73 x10 3/uL 1.3-2.9 L MONOCYTE # (test code = MO#) 0.78 x10 3/uL 0.3-0.8 N EOSINOPHIL # (test code = EO#) 0.20 x10 3/uL 0.0-0.2 N BASOPHIL # (test code = BA#) 0.03 x10 3/uL 0.0-0.1 N [id number] 16:14:00 Test Item Value Reference Range Interpretation Comments GLUBED (test code = GLUBED) 130 MG/DL 74-106 H [id number] 11:59:00 Test Item Value Reference Range Interpretation Comments GLUBED (test code = GLUBED) 204 MG/DL 74-106 H [id number] 06:02:00 Test Item Value Reference Range Interpretation Comments GLUBED (test code = GLUBED) 142 MG/DL 74-106 H [id number] 21:04:00 Test Item Value Reference Range Interpretation Comments GLUBED (test code = GLUBED) 302 MG/DL 74-106 H [id number] 16:50:00 Test Item Value Reference Range Interpretation Comments GLUBED (test code = GLUBED) 251 MG/DL 74-106 H [id number] 12:14:00 Test Item Value Reference Range Interpretation Comments GLUBED (test code = GLUBED) 149 MG/DL 74-106 H COMPREHENSIVE METABOLIC [id number] 07:15:00 Test Item Value Reference Range Interpretation Comments SODIUM (test code = 141 mmol/L 137-145 N NA) POTASSIUM (test code = 3.7 mmol/L 3.4-5.0 N K) CHLORIDE (test code = 105 mmol/L 98-107 N CL) CARBON DIOXIDE (test 26 mmol/L 22-30 N code = CO2) GLUCOSE (test code = 100 mg/dL 74-106 N GLU) BLOOD UREA NITROGEN 23 mg/dL 7-17 H (test code = BUN) GLOMERULAR FILTRATION 33 >60 L The es timated RATE (test code = GFR) glome rular filtration rate is compute d usingpatient ra ce, age (>18), sex, and serum creatinin e. If anyof the neede d data elements are mi ssing the Laboratory cannot compute an veronica mation of the glomerul ar filtration rate . CREATININE (test code 1.6 mg/dL 0.5-1.0 H = CREAT) TOTAL PROTEIN (test 6.2 g/dL 6.3-8.2 L code = PROT) ALBUMIN (test code = 3.5 g/dL 3.5-5.0 N ALB) CALCIUM (test code = 9.0 mg/dL 8.4-10.2 N CA) BILIRUBIN TOTAL (test 0.6 mg/dL 0.2-1.3 N code = BILT) BILIRUBIN CONJUGATED 0 mg/dL 0-0.3 N ~~~~~~~ ~~~~~~~~~~~~~~ (test code = BILCON) ~~~~~~~ ~~~~~~~~~~~~~~ ~~~~~~~~~~~~~~~ ~~~CON JUGATED BILIRUB IN IS THE REPLACEMENT ASSAY FOR DIRECTBILIRUBIN .~~~~~ ~~~~~~~~~~~~~~~ ~~~~~~ ~~~~~~~~~~~~~~~ ~~~~~~ ~~~~~~~~~~~~~ BILIRUBIN UNCONJUGATED 0 mg/dL 0-1.1 N (test code = BILUNC) SGOT/AST (test code = 26 U/L 15-46 N AST) SGPT/ALT (test code = 19 U/L 13-69 N ALT) ALKALINE PHOSPHATASE 34 U/L 38-126 L (test code = ALKP) [id number] 07:15:00 Test Item Value Reference Range Interpretation Comments MAGNESIUM (test code = MAG) 1.6 mg/dL 1.6-2.3 N CARDIAC ENZYMES [id number] 07:15:00 Test Item Value Reference Range Interpretation Comments CREATINE KINASE < 30 U/L 30-135 L (CK) (test code = CK) CKMB (test code = < 0.50 ng/mL 0.5-5.0 L CKMBT) TROPONIN-I (test < 0.012 ng/mL 0.012-0.033 L code = TROPI) P lease be advised of the updated reference range s for the new Material Manager ry instrumentation . VITROS TROPO LOLI I CRITERIANORM AL PATIENT W/O CIR CULATING TNI: 0.012-0.03 3 ng/mLCIRCULATIN G TNI PRESENT: 0.034- 0.119 ng/mL(MAY BE AT RISK OF AMI)AMI DIAGNOS TIC CUTOFF: >/= 0.1 20 ng/mL~~~~~~~~~~ ~~~~~~~~ ~~~~~~~~~~~~~~~ ~~~~~~~~ ~~~~~~~~~~~~~~~ ~~~The use of serial s ampling and testing pro tocol is arecommended practice.An stacy vated troponin level alone is often not suffi cient fordiagnosis of myocardial infa rction. Troponin result s obtained by dif ferent assays may vary.Evaluation of the extent of myoca rdial damage based on increase of troponin wou ld be valid only if similarmethodol ogy is used.~~~~~~~~~~ ~~~~~~~~ ~~~~~~~~~~~~~~~ ~~~~~~~~ ~~~~~~~~~~~~~~~ ~~~ COMPREHENSIVE METABOLIC [id number] 07:10:00 Test Item Value Reference Range Interpretation Comments SODIUM (test code = 141 mmol/L 137-145 N NA) POTASSIUM (test code = 3.7 mmol/L 3.4-5.0 N K) CHLORIDE (test code = 105 mmol/L 98-107 N CL) CARBON DIOXIDE (test 26 mmol/L 22-30 N code = CO2) GLUCOSE (test code = 100 mg/dL 74-106 N GLU) BLOOD UREA NITROGEN 23 mg/dL 7-17 H (test code = BUN) GLOMERULAR FILTRATION 33 >60 L The es timated RATE (test code = GFR) glome rular filtration rate is compute d usingpatient ra ce, age (>18), sex, and serum creatinin e. If anyof the neede d data elements are mi ssing the Laboratory cannot compute an veronica mation of the glomerul ar filtration rate . CREATININE (test code 1.6 mg/dL 0.5-1.0 H = CREAT) TOTAL PROTEIN (test 6.2 g/dL 6.3-8.2 L code = PROT) ALBUMIN (test code = 3.5 g/dL 3.5-5.0 N ALB) CALCIUM (test code = 9.0 mg/dL 8.4-10.2 N CA) BILIRUBIN TOTAL (test 0.6 mg/dL 0.2-1.3 N code = BILT) BILIRUBIN CONJUGATED 0 mg/dL 0-0.3 N ~~~~~~~ ~~~~~~~~~~~~~~ (test code = BILCON) ~~~~~~~ ~~~~~~~~~~~~~~ ~~~~~~~~~~~~~~~ ~~~CON JUGATED BILIRUB IN IS THE REPLACEMENT ASSAY FOR DIRECTBILIRUBIN .~~~~~ ~~~~~~~~~~~~~~~ ~~~~~~ ~~~~~~~~~~~~~~~ ~~~~~~ ~~~~~~~~~~~~~ BILIRUBIN UNCONJUGATED 0 mg/dL 0-1.1 N (test code = BILUNC) SGOT/AST (test code = 26 U/L 15-46 N AST) SGPT/ALT (test code = 19 U/L 13-69 N ALT) ALKALINE PHOSPHATASE 34 U/L 38-126 L (test code = ALKP) [id number] 07:10:00 Test Item Value Reference Range Interpretation Comments MAGNESIUM (test code = MAG) 1.6 mg/dL 1.6-2.3 N CARDIAC ENZYMES [id number] 07:10:00 Test Item Value Reference Range Interpretation Comments CREATINE KINASE (CK) (test code = < 30 U/L 30-135 L CK) CKMB (test code = CKMBT) ng/mL 0.5-5.0 TROPONIN-I (test code = TROPI) ng/mL 0.012-0.033 [id number] 06:41:00 Test Item Value Reference Range Interpretation Comments GLUBED (test code = GLUBED) 94 MG/DL 74-106 N CBC W/AUTO [id number] 06:36:00 Test Item Value Reference Range Interpretation Comments WHITE BLOOD CELL (test code = 6.3 x10 3/uL 5.0-12.0 N WBC) RED BLOOD CELL (test code = 3.21 x10 6/uL 4.20-5.40 L RBC) HEMOGLOBIN (test code = HGB) 8.6 g/dL 12.0-16.0 L HEMATOCRIT (test code = HCT) 28.5 % 36.0-46.0 L MEAN CELL VOLUME (test code = 89 fL 81-99 N MCV) MEAN CELL HGB (test code = MCH) 26.8 pg 27-31 L MEAN CELL HGB CONCENTRATION 30.2 g/dL 33-37 L (test code = MCHC) RED CELL DISTRIBUTION WIDTH 15.9 % 11.5-15.5 H (test code = RDW) PLATELET COUNT (test code = 266 x10 3/uL 130-400 N PLT) MEAN PLATELET VOLUME (test code 10.5 fL 9.4-16.4 N = MPV) NEUTROPHIL % (test code = NT%) 76.2 % 43-65 H IMMATURE GRANULOCYTE % (test 0.6 % 0.0-2.0 N code = IG%) LYMPHOCYTE % (test code = LY%) 8.6 % 20.5-45.5 L MONOCYTE % (test code = MO%) 10.7 % 5.5-11.7 N EOSINOPHIL % (test code = EO%) 3.4 % 0.9-2.9 H BASOPHIL % (test code = BA%) 0.5 % 0.2-1.0 N NUCLEATED RBC % (test code = 0.0 % 0-1.0 N NRBC%) NEUTROPHIL # (test code = NT#) 4.76 x10 3/uL 2.2-4.8 N IMMATURE GRANULOCYTE # (test 0.04 x10 3/uL 0-0.03 H code = IG#) LYMPHOCYTE # (test code = LY#) 0.54 x10 3/uL 1.3-2.9 L MONOCYTE # (test code = MO#) 0.67 x10 3/uL 0.3-0.8 N EOSINOPHIL # (test code = EO#) 0.21 x10 3/uL 0.0-0.2 H BASOPHIL # (test code = BA#) 0.03 x10 3/uL 0.0-0.1 N CARDIAC ENZYMES [id number] 22:14:00 Test Item Value Reference Range Interpretation Comments CREATINE KINASE < 30 U/L 30-135 L (CK) (test code = CK) CKMB (test code = 0.57 ng/mL 0.5-5.0 CKMBT) TROPONIN-I (test < 0.012 ng/mL 0.012-0.033 L code = TROPI) P hector be advised of the updated reference range s for the new Material Manager ry instrumentation . VITROS TROPO LOLI I CRITERIANORM AL PATIENT W/O CIR CULATING TNI: 0.012-0.03 3 ng/mLCIRCULATIN G TNI PRESENT: 0.034- 0.119 ng/mL(MAY BE AT RISK OF AMI)AMI DIAGNOS TIC CUTOFF: >/= 0.1 20 ng/mL~~~~~~~~~~ ~~~~~~~~ ~~~~~~~~~~~~~~~ ~~~~~~~~ ~~~~~~~~~~~~~~~ ~~~The use of serial s ampling and testing pro tocol is arecommended practice.An stacy vated troponin level alone is often not suffi cient fordiagnosis of myocardial infa rction. Troponin result s obtained by dif ferent assays may vary.Evaluation of the extent of myoca rdial damage based on increase of troponin wou ld be valid only if similarmethodol ogy is used.~~~~~~~~~~ ~~~~~~~~ ~~~~~~~~~~~~~~~ ~~~~~~~~ ~~~~~~~~~~~~~~~ ~~~ Spec Comments: Cancel third set if POC Troponin completed in ED CARDIAC ENZYMES [id number] 22:03:00 Test Item Value Reference Range Interpretation Comments CREATINE KINASE (CK) (test code = < 30 U/L 30-135 L CK) CKMB (test code = CKMBT) ng/mL 0.5-5.0 TROPONIN-I (test code = TROPI) ng/mL 0.012-0.033 Spec Comments: Cancel third set if POC Troponin completed in ED [id number] 21:41:00 Test Item Value Reference Range Interpretation Comments GLUBED (test code = GLUBED) 91 MG/DL 74-106 N UA RFLX MICR CULT IF [id number] 16:26:00 Test Item Value Reference Range Interpretation Comments UA COLOR (test code = Yellow Yellow COLU) UA APPEARANCE (test Clear Clear code = APPU) UA GLUCOSE DIPSTICK Negative Negative (test code = DGLUU) UA BILIRUBIN DIPSTICK Negative Negative (test code = BILU) UA KETONE DIPSTICK Negative mg/dL Negative (test code = KETU) UA SPECIFIC GRAVITY 1.010 <1.030 (test code = SGU) UA BLOOD DIPSTICK Negative Negative (test code = QUANG) UA PH DIPSTICK (test 7.0 5.0-8.0 code = AGNES) UA PROTEIN DIPSTICK 100 (2+) mg/dL Negative A (test code = PROU) UA UROBILINOGEN Negative mg/dL Negative DIPSTICK (test code = URO) UA NITRITE DIPSTICK Negative Negative (test code = FARZANA) UA LEUKOCYTE ESTERASE NEGATIVE Negative DIPSTICK (test code = LEUU) UA WBC (test code = 0-3 /HPF <4-5 <10 WBC/ HPF = WBCUR) PYURIA ABSENT URINE CULTURE NOT INDICATED UA RBC (test code = 0-3 /HPF <4-5 RBCU) UA BACTERIA (test None /HPF None-Rare code = BACU) UA SQUAMOUS CELLS 0-5 (RARE) /HPF 0-5 (RARE) (test code = SQU) less than 18 yrs old, neutropenic, or urological surgery? NOPrimary Indication for Culture: Sev Sepsis No Oth SourceLIPID PROFILE (CORONARY RISK)2018-10-19 13:26:00 Test Item Value Reference Range Interpretation Comments TRIGLYCERIDES (test 218 mg/dL TRIGLYCE RIDES code = TRIG) REFERENCE RANGE:Normal: < 150 mg/dLBorderline High: 150-199 mg/dLHi gh: 200-499 mg/dLVe ry High: >=500 mg/ dL CHOLESTEROL (test 150 mg/dL CHOLESTERO L REFERENCE code = CHOL) RANGE:DESIRABLE : < 200 mg/dLBORDER LINE: 200-239 mg/dLHI GH: >=240 mg/dL HDL CHOLESTEROL (test 38 mg/dL 40-59 L code = HDL) LIPOPROTEIN LDL (test 71.37 mg/dL 32-99 N code = LDLC) CORONARY RISK FACTOR 3.95 (test code = RISK) CHOL/HDL RISK MALE: 1/2 AVG 3.43 FEMALE: 1/2 AV G 3.27 AVG 4.97 AVG 4.44 2X AVG 9.55 2X AVG 7.05 3X AVG 23. 39 3X AVG 11.04~~~~~~~~~~ ~~~~~~ ~~~~~~~~~~~~~~~ ~~~~~~ ~~~~~~~~~~~~~~~ ~~~~~~ ~~National Cholesterol Edu cation (NCEP) Guidelines:~~~~ ~~~~~~ ~~~~~~~~~~~~~~~ ~~~~~~ ~~~~~~~~~~~~~~~ ~~~~~~ ~~~~~~~~ HDL Cholesterol<4 0mg/dL : HDL Cholester ol (Major risk fac tor for CHD)>60mg/d L: HDL Cholesterol (Ne gative risk factor for CHD)40-59mg/dL: Borderline Risk LDL Cholesterol<1 00mg/d L: Desirable LD L-C [id number] 0-159m g/dL: Borderlin e High Risk LDL-C [id number] 0-189m g/dL: High risk LDL-C concentration H DL-LDL Cholesterol is affected by a n umber of factors such as smoking, age an d sex.~~~~~~~~~~~ ~~~~~~ ~~~~~~~~~~~~~~~ ~~~~~~ ~~~~~~~~~~~~~~~ ~~~~~~ ~ Spec Comments: Cancel third set if POC Troponin completed in ED CARDIAC ENZYMES [id number] 13:26:00 Test Item Value Reference Range Interpretation Comments CREATINE KINASE 42 U/L 30-135 N (CK) (test code = CK) CKMB (test code = 0.62 ng/mL 0.5-5.0 N CKMBT) TROPONIN-I (test < 0.012 ng/mL 0.012-0.033 L code = TROPI) P carlosase be advised of the updated reference range s for the new [employer] instrumentation . VITROS TROPO LOLI I CRITERIANORM AL PATIENT W/O CIR CULATING TNI: 0.012-0.03 3 ng/mLCIRCULATIN G TNI PRESENT: 0.034- 0.119 ng/mL(MAY BE AT RISK OF AMI)AMI DIAGNOS TIC CUTOFF: >/= 0.1 20 ng/mL~~~~~~~~~~ ~~~~~~~~ ~~~~~~~~~~~~~~~ ~~~~~~~~ ~~~~~~~~~~~~~~~ ~~~The use of serial s ampling and testing pro tocol is arecommended practice.An stacy vated troponin level alone is often not suffi cient fordiagnosis of myocardial infa rction. Troponin result s obtained by dif ferent assays may vary.Evaluation of the extent of myoca rdial damage based on increase of troponin wou ld be valid only if similarmethodol ogy is used.~~~~~~~~~~ ~~~~~~~~ ~~~~~~~~~~~~~~~ ~~~~~~~~ ~~~~~~~~~~~~~~~ ~~~ Spec Comments: Cancel third set if POC Troponin completed in ED LIPID PROFILE (CORONARY RISK)2018-10-19 13:22:00 Test Item Value Reference Range Interpretation Comments TRIGLYCERIDES (test 218 mg/dL TRIGLYCE RIDES code = TRIG) REFERENCE RANGE:Normal: < 150 mg/dLBorderline High: 150-199 mg/dLHi gh: 200-499 mg/dLVe ry High: >=500 mg/ dL CHOLESTEROL (test code 150 mg/dL ANURADHA STEROL REFERENCE = CHOL) RANGE:DESIRABLE : < 200 mg/dLBORDERLINE : 200-239 mg/dLHI GH: >=240 mg/dL HDL CHOLESTEROL (test 38 mg/dL 40-59 L code = HDL) LIPOPROTEIN LDL (test mg/dL 32-99 code = LDLC) CORONARY RISK FACTOR 3.95 (test code = RISK) CHOL/HDL RISK MALE: 1/2 AVG 3.43 FEMALE: 1/2 AV G 3.27 AVG 4.97 AVG 4.44 2X AVG 9.55 2X AVG 7.05 3X AVG 23.39 3X AVG 11.04~~~~~~~~~~ ~~~~~~~ ~~~~~~~~~~~~~~~ ~~~~~~~ ~~~~~~~~~~~~~~~ ~~~~~~[facility] Ch[facility]est libby Education (NCEP ) Guidelines:~~~~ ~~~~~~~ ~~~~~~~~~~~~~~~ ~~~~~~~ ~~~~~~~~~~~~~~~ ~~~~~~~ ~~~~~ HDL Cholesterol<4 0mg/dL: HDL Cholesterol (Major risk factor for CHD)>60mg/dL: H DL Cholesterol (Ne gative risk factor for CHD)40-59mg/dL: Borderline Risk L DL Cholesterol<1 00mg/dL : Desirable LDL -C [id number] 0-159mg /dL: Borderline High Risk LDL-C [id number] 0-189mg /dL: High risk LDL-C concentration H DL-LDL Cholesterol is affected by a n umber of factors such as smoking, age an d sex.~~~~~~~~~~~ ~~~~~~~ ~~~~~~~~~~~~~~~ ~~~~~~~ ~~~~~~~~~~~~~~~ ~~~~~ Spec Comments: Cancel third set if POC Troponin completed in ED CARDIAC ENZYMES [id number] 13:22:00 Test Item Value Reference Range Interpretation Comments CREATINE KINASE 42 U/L 30-135 N (CK) (test code = CK) CKMB (test code = 0.62 ng/mL 0.5-5.0 N CKMBT) TROPONIN-I (test < 0.012 ng/mL 0.012-0.033 L code = TROPI) P lease be advised of the updated reference range s for the new [employer] instrumentation . VITROS TROPO LOLI I CRITERIANORM AL PATIENT W/O CIR CULATING TNI: 0.012-0.03 3 ng/mLCIRCULATIN G TNI PRESENT: 0.034- 0.119 ng/mL(MAY BE AT RISK OF AMI)AMI DIAGNOS TIC CUTOFF: >/= 0.1 20 ng/mL~~~~~~~~~~ ~~~~~~~~ ~~~~~~~~~~~~~~~ ~~~~~~~~ ~~~~~~~~~~~~~~~ ~~~The use of serial s ampling and testing pro tocol is arecommended practice.An stacy vated troponin level alone is often not suffi cient fordiagnosis of myocardial infa rction. Troponin result s obtained by dif ferent assays may vary.Evaluation of the extent of myoca rdial damage based on increase of troponin wou ld be valid only if similarmethodol ogy is used.~~~~~~~~~~ ~~~~~~~~ ~~~~~~~~~~~~~~~ ~~~~~~~~ ~~~~~~~~~~~~~~~ ~~~ Spec Comments: Cancel third set if POC Troponin completed in ED LIPID PROFILE (CORONARY RISK)2018-10-19 13:16:00 Test Item Value Reference Range Interpretation Comments TRIGLYCERIDES (test 218 mg/dL TRIGLYCE RIDES code = TRIG) REFERENCE RANGE:Normal: < 150 mg/dLBorderline High: 150-199 mg/dLHi gh: 200-499 mg/dLVe ry High: >=500 mg/ dL CHOLESTEROL (test code 150 mg/dL ANURADHA STEROL REFERENCE = CHOL) RANGE:DESIRABLE : < 200 mg/dLBORDERLINE : 200-239 mg/dLHI GH: >=240 mg/dL HDL CHOLESTEROL (test 38 mg/dL 40-59 L code = HDL) LIPOPROTEIN LDL (test mg/dL 32-99 code = LDLC) CORONARY RISK FACTOR 3.95 (test code = RISK) CHOL/HDL RISK MALE: 1/2 AVG 3.43 FEMALE: 1/2 AV G 3.27 AVG 4.97 AVG 4.44 2X AVG 9.55 2X AVG 7.05 3X AVG 23.39 3X AVG 11.04~~~~~~~~~~ ~~~~~~~ ~~~~~~~~~~~~~~~ ~~~~~~~ ~~~~~~~~~~~~~~~ ~~~~~~[facility] Cholest libby Education (NCEP ) Guidelines:~~~~ ~~~~~~~ ~~~~~~~~~~~~~~~ ~~~~~~~ ~~~~~~~~~~~~~~~ ~~~~~~~ ~~~~~ HDL Cholesterol<4 0mg/dL: HDL Cholesterol (Major risk factor for CHD)>60mg/dL: H DL Cholesterol (Ne gative risk factor for CHD)40-59mg/dL: Borderline Risk L DL Cholesterol<1 00mg/dL : Desirable LDL -C [id number] 0-159mg /dL: Borderline High Risk LDL-C [id number] 0-189mg /dL: High risk LDL-C concentration H DL-LDL Cholesterol is affected by a n umber of factors such as smoking, age an d sex.~~~~~~~~~~~ ~~~~~~~ ~~~~~~~~~~~~~~~ ~~~~~~~ ~~~~~~~~~~~~~~~ ~~~~~ Spec Comments: Cancel third set if POC Troponin completed in ED CARDIAC ENZYMES [id number] 13:16:00 Test Item Value Reference Range Interpretation Comments CREATINE KINASE (CK) (test code = CK) 42 U/L 30-135 N CKMB (test code = CKMBT) ng/mL 0.5-5.0 TROPONIN-I (test code = TROPI) ng/mL 0.012-0.033 Spec Comments: Cancel third set if POC Troponin completed in ED PROCALCITONIN (PCT)2018-10-19 12:09:00 Test Item Value Reference Range Interpretation Comments PROCALCITONIN (PCT) 0.06 NG/ML (test code = PROCAL) Procalcito loli (PCT) Normal Va lue: <0.05 NG/ML <0. 5 NG/ML - low risk of s evere sepsis and/or s eptic shock>2.0 NG/ML - high risk of severe sepsis and/or septic s hock PCT concentrations between 0.5 and 2.0 NG/ ML should beinterp reted taking into acc ount the patient's histo ry.It is recommended to retest PCT within 6-24 hours if anyconcentra tions between 0.5-2.0 NG/ML are obtained. BASIC METABOLIC [id number] 11:45:00 Test Item Value Reference Range Interpretation Comments SODIUM (test code = 138 mmol/L 137-145 N NA) POTASSIUM (test code 5.8 mmol/L 3.4-5.0 H IS THE SAMPLE = K) HEMOLYZED?:YESH PRUDENCELYSI S GRADE:2+ CHLORIDE (test code = 106 mmol/L 98-107 N CL) CARBON DIOXIDE (test 26 mmol/L 22-30 N code = CO2) GLUCOSE (test code = 104 mg/dL 74-106 N GLU) BLOOD UREA NITROGEN 25 mg/dL 7-17 H (test code = BUN) GLOMERULAR FILTRATION 33 >60 L The es timated RATE (test code = glomerular filtration GFR) rate is compute d usingpatient ra ce, age (>18), sex, and serum creatinine. If anyof the needed data elements are mi ssing the Laboratory cannot compute an veronica mation of the glomerul ar filtration rate . CREATININE (test code 1.6 mg/dL 0.5-1.0 H = CREAT) CALCIUM (test code = 9.4 mg/dL 8.4-10.2 N CA) LIVER FUNCTION [id number] 11:45:00 Test Item Value Reference Range Interpretation Comments TOTAL PROTEIN (test 7.2 g/dL 6.3-8.2 N code = PROT) ALBUMIN (test code = 3.9 g/dL 3.5-5.0 N ALB) BILIRUBIN TOTAL (test 0.9 mg/dL 0.2-1.3 N code = BILT) BILIRUBIN CONJUGATED 0 mg/dL 0-0.3 N ~~~~~~~ ~~~~~~~~~~~~~~ (test code = BILCON) ~~~~~~~ ~~~~~~~~~~~~~~ ~~~~~~~~~~~~~~~ ~~~CON JUGATED BILIRUB IN IS THE REPLACEMENT ASSAY FOR DIRECTBILIRUBIN .~~~~~ ~~~~~~~~~~~~~~~ ~~~~~~ ~~~~~~~~~~~~~~~ ~~~~~~ ~~~~~~~~~~~~~ BILIRUBIN UNCONJUGATED 0.1 mg/dL 0-1.1 N (test code = BILUNC) SGOT/AST (test code = 33 U/L 15-46 N AST) SGPT/ALT (test code = 15 U/L 13-69 N ALT) ALKALINE PHOSPHATASE 21 U/L 38-126 L (test code = ALKP) NT PRO-BRAIN NATRIURETIC [id number] 11:45:00 Test Item Value Reference Range Interpretation Comments NT PRO-BRAIN 7800 pg/mL 0-299 H ~~~~~~~~~~~~~~~ ~~~~~~~~ NATRIURETIC PEPTI ~~~~~~~~~~ ~~~~~~~~~~~~~ (test code = PROBNP) ~~~~~~~ ~~~~~~~NT PRO-BNP IS THE REPLACEMENT ASS AY FOR BNP.~~~~~~~~~~~ ~~~~~~~~ ~~~~~~~~~~~~~~~ ~~~~~~~~ ~~~~~~~~~~~~~~~ ~~~RULE- IN CUT POINTS F OR PATIENTS WITH S USPECTED ACUTECONGESTIVE HEART FAILURE:<50 yrs old: >450 pg/mL50-75 yrs old: >900 pg/mL >75 yrs old: >1800 pg/mL A positive bias m ay occur on patients clair ing BIOTINsupplemen ts. POC ARTERIAL BLOOD [id number] 11:44:00 Test Item Value Reference Range Interpretation Comments POC ARTERIAL BLOOD GAS PH (test 7.372 7.35-7.45 N code = POCPHA) POC ARTERIAL BLOOD GAS PCO2 (test 38.9 mmHg 35-45 N code = [id number]) POC ARTERIAL BLOOD GAS PO2 (test 64 mmHg 80-90 L code = YKMYG5I) POC HCO3 ARTERIAL (test code = 22.6 mmol/L 22.0-24.0 N [id number]) POC BASE EXCESS (test code = -3 mmol/L -2.0-2.0 L POCBEA) POC O2 SATURATION (test code = 92 % 95-98 L POCO2S) ARTERIAL FIO2 (test code = FIO2A) 50 % ABG DELIVERY (test code = EMETERIO) Bipap ABG PATIENT RESP RATE (test code 29 /MIN 12-20 H = RRPATA) ABG SITE (test code = SITEA) L Rad ALLENS TEST (test code = ALLENS) Pass [id number] 11:41:00 Test Item Value Reference Range Interpretation Comments MAGNESIUM (test code = MAG) 1.8 mg/dL 1.6-2.3 N PROTHROMBIN [id number] 11:33:00 Test Item Value Reference Range Interpretation Comments PROTHROMBIN TIME 12.5 SECONDS 9.2-12.1 H PATIENT (test code = PTP) INTERNATIONAL NORMAL 1.1 The INR is to be used RATIO (test code = only for monitoring INR) ORAL ANTICOAGULANTTH ERAPY. Indicati on INR Value1. Prophylaxis/liliya atment of: Venous Thrombosis, Pul monary Embolism 2.0 - 3.02. Preventi on of systemic emboli sm from: Tiss ue heart valves 2.0 - 3.0 Acute myocardial infa rction (to present systemic emboli sm)* 2.0 - 3.0 Valvular heart disease 2.0 - 3.0 Atrial fibrillation 2.0 - 3.03. Surveying Crew Rodman al prosthetic valv es (high risk) 2.5 - 3.5 * If oral anticoagulant t herapy is elected to preventrecurren t myocardial infa rction, an INR of 2.5-3 .5 isrecommended, consistent with Food and Drug Administrationr ecommen dations. THROMBOPLASTIN TIME [id number] 11:33:00 Test Item Value Reference Range Interpretation Comments THROMBOPLASTIN TIME 20.4 SECONDS 23.4-37.0 L Therap eutic Range PARTIAL (test code = for Hep nawaf PTT) EFFECTIVE Heparin IU/mL aPT T Seconds0.3 64.30.7 88.8 TROPONIN I [id number] 11:17:00 Test Item Value Reference Range Interpretation Comments TROPONIN I RAPID 0.01 ng/mL 0.00-0.079 N ISTAT (test code = TROPONIN I TROPIRAP) CRITERIA0.00-0. 08 ng/mL - Negative>0.08 n g/mL - Positive The us e of serial sampling and te sting protocol is are commended practice.An stacy vated troponin level alone is often not suffi cient fordiagnosis of myocardial infarction. Tro ponin results obtaine d by different assay s may vary.Evaluation of the extent of myoca rdial damage based on increase of troponin would be valid only if similar methodology is used. - XR CHEST 1 [id number] 11:14:00 FAX: Rebecca Coronel [phone] [place]: St: PRE Name: JACQUIE HANKINS [facility] : 1940 Age/S: 78/F [address] Unit#: [id number] Loc: [place] [address] Phys: Mariajose Huggins MD Acct: [id number] Dis Date: Status: PRE ER PHONE #: [phone] Exam Date: 10/19/2018 1109 FAX #: [phone] Reason: RESP FAILURE EXAMS: CPT CODE: [id number] XR CHEST 1 V 86959 CHEST 1 VIEW CLINICAL INFORMATION: RESP FAILURE COMPARISON: October 09, 2018 FINDINGS: The cardiac silhouette is moderately enlarged. There is prominence of the central pulmonary vasculature and interstitial markings. The lateral costophrenic angles are blunted. There is also thickening of the right minor fissure. Atherosclerotic calcifications are present in the aorta. Postsurgical changes of a right reverse shoulder arthroplasty are noted. Kyphoplasty has been performed in the mid thoracic spine. IMPRESSION: Enlargedcardiac silhouette with pulmonary edema pattern and small pleural effusions. LOCATION: R16 at 1114 Reported and signed by: Siva Anton MD CC: Jaquelinashely Ruff MD Technologist: MINESH ROQUE Trnscrd Date/Time/By:10/19/2018 (7682) : By: JoyAM18 PAGE 1 Signed Report FAX: Rebecca Calhoun [phone] [place]: St: PRE Name: JACQUIE HANKINS [facility] : 1940 Age/S: 78/F [address] Unit #: [id number] Loc: [place] [address] Phys: Mariajose Huggins MD Acct: [id number] Dis Date: Status: PRE ER PHONE #: [phone] Exam Date: 10/19/2018 1109 FAX #: [phone] Reason: RESP FAILURE EXAMS: CPT CODE: [id number] XR CHEST 1V 12126 <Continued> Orig Print D/T: S: 10/19/2018 (8401) PAGE 2Signed ReportCBC W/AUTO DIFF 2018-10-19 11:11:00 Test Item Value Reference Range Interpretation Comments WHITE BLOOD CELL (test code = 7.5 x10 3/uL 5.0-12.0 N WBC) RED BLOOD CELL (test code = 3.59 x10 6/uL 4.20-5.40 L RBC) HEMOGLOBIN (test code = HGB) 9.8 g/dL 12.0-16.0 L HEMATOCRIT (test code = HCT) 31.5 % 36.0-46.0 L MEAN CELL VOLUME (test code = 88 fL 81-99 N MCV) MEAN CELL HGB (test code = MCH) 27.3 pg 27-31 N MEAN CELL HGB CONCENTRATION 31.1 g/dL 33-37 L (test code = MCHC) RED CELL DISTRIBUTION WIDTH 16.2 % 11.5-15.5 H (test code = RDW) PLATELET COUNT (test code = 293 x10 3/uL 130-400 N PLT) MEAN PLATELET VOLUME (test code 11.1 fL 9.4-16.4 N = MPV) NEUTROPHIL % (test code = NT%) 77.0 % 43-65 H IMMATURE GRANULOCYTE % (test 1.1 % 0.0-2.0 N code = IG%) LYMPHOCYTE % (test code = LY%) 9.9 % 20.5-45.5 L MONOCYTE % (test code = MO%) 8.9 % 5.5-11.7 N EOSINOPHIL % (test code = EO%) 2.7 % 0.9-2.9 N BASOPHIL % (test code = BA%) 0.4 % 0.2-1.0 N NUCLEATED RBC % (test code = 0.0 % 0-1.0 N NRBC%) NEUTROPHIL # (test code = NT#) 5.78 x10 3/uL 2.2-4.8 H IMMATURE GRANULOCYTE # (test 0.08 x10 3/uL 0-0.03 H code = IG#) LYMPHOCYTE # (test code = LY#) 0.74 x10 3/uL 1.3-2.9 L MONOCYTE # (test code = MO#) 0.67 x10 3/uL 0.3-0.8 N EOSINOPHIL # (test code = EO#) 0.20 x10 3/uL 0.0-0.2 N BASOPHIL # (test code = BA#) 0.03 x10 3/uL 0.0-0.1 N LACTIC ACID [id number] 11:08:00 Test Item Value Reference Range Interpretation Comments LACTIC ACID POC (test code = 0.55 mmol/L 0.7-2.0 L LACTP) - XR CHEST 2 [id number] 13:30:00 FAX: Rebecca Coronel [phone] [place]: St: REG Name: JACQUIE HANKINS [facility] : 1940 Age/S: 78/F [address] Unit#: [id number] [place]: [place] [address] Phys: Jaquelin Yoder MD Acct: [id number] Dis Date: Status: REG CLI PHONE #: [phone] Exam Date: 10/09/2018 1310 FAX #: [phone] Reason: PNEUMONIA EXAMS: CPT CODE: [id number] XR CHEST 2 V 58927 EXAM: CHEST X-RAY INDICATION: PNEUMONIA LOCATION CODE: C3 COMPARISON: 09/12/2018 chest x-ray, 09/05/2018, 09/13/2018 CT chest TECHNIQUE: Two views of the chest DISCUSSION: Mild pulmonary vascular redistribution are seen. No pneumothorax noted. There is slight blunting of the posterior costophrenic angle suggests small residual bilateral pleural effusion. Heart and mediastinal contours unremarkable. There is evidence of prior vertebral body augmentation involving the mid thoracic spine. Patient is status post right shoulder arthroplasty. IMPRESSION: 1.Mild pulmonary vascular congestion. 2. Small bilateral pleural effusion The above report was generated by using voice recognition. at 1330 Reported and signed by: Ady Ratliff M.D. PAGE 1 Signed Report (CONTINUED) FAX: Rebecca Coronel [phone] [place]: St: REG Name: JACQUIE HANKINS [facility] : 1940 Age/S: 78/F [address] Unit #: [id number] [place]: [place] [address] Phys: Jaquelin Yoder MD Acct: [id number] Dis Date: Status: REG CLI PHONE #: [phone] Exam Date: 10/09/2018 1310 FAX #: [phone] Reason: PNEUMONIA EXAMS: CPT CODE: [id number] XR CHEST 2 V 38079 <Continued> CC: Jaquelin Yoder MD Technologist: Sherry Spencer Trnscrd Date/Time/By: 10/09/2018 (0369) : By: JoyJanet PAGE 2 Signed Report FAX: Rebecca Coronel [phone] [place]: St: REG -- Name: JACQUIE HAKNINS [facility] : 1940 Age/S: 78/F [address] Unit #: [id number] Loc: [place] [address] Phys: Jaquelin Nieto MD Acct: [id number] Dis Date: Status: REG CLI PHONE #: [phone] Exam Date: 10/09/2018 1310 FAX #: [phone] Reason: PNEUMONIA EXAMS: CPT CODE: [id number] XR CHEST 2 V 12154 <Continued> Orig Print D/T: S: 10/09/2018 (5050) PAGE 3 Signed [id number] 21:17:00 Test Item Value Reference Range Interpretation Comments GLUBED (test code = GLUBED) 227 MG/DL 74-106 H [id number] 17:43:00 Test Item Value Reference Range Interpretation Comments GLUBED (test code = GLUBED) 204 MG/DL 74-106 H [id number] 13:03:00 Test Item Value Reference Range Interpretation Comments GLUBED (test code = GLUBED) 242 MG/DL 74-106 H [id number] 13:03:00 Test Item Value Reference Range Interpretation Comments GLUBED (test code = GLUBED) 149 MG/DL 74-106 H [id number] 21:10:00 Test Item Value Reference Range Interpretation Comments GLUBED (test code = GLUBED) 112 MG/DL 74-106 H [id number] 17:44:00 Test Item Value Reference Range Interpretation Comments GLUBED (test code = GLUBED) 202 MG/DL 74-106 H [id number] 13:45:00 Test Item Value Reference Range Interpretation Comments GLUBED (test code = GLUBED) 195 MG/DL 74-106 H [id number] 09:21:00 Test Item Value Reference Range Interpretation Comments GLUBED (test code = GLUBED) 119 MG/DL 74-106 H [id number] 00:02:00 Test Item Value Reference Range Interpretation Comments GLUBED (test code = 437 MG/DL 74-106 HH GLUBED) A VENOUS SPECIMEN SHOULD BE ORDERED FOR GLUCOSE VERIFIC ATION IF MED ICALLY NECESSARY. [id number] 16:37:00 Test Item Value Reference Range Interpretation Comments GLUBED (test code = GLUBED) 332 MG/DL 74-106 H COMPREHENSIVE METABOLIC [id number] 14:34:00 Test Item Value Reference Range Interpretation Comments SODIUM (test code = 141 mmol/L 137-145 N NA) POTASSIUM (test code = 4.2 mmol/L 3.4-5.0 N K) CHLORIDE (test code = 101 mmol/L 98-107 N CL) CARBON DIOXIDE (test 29 mmol/L 22-30 N code = CO2) GLUCOSE (test code = 319 mg/dL 74-106 H GLU) BLOOD UREA NITROGEN 37 mg/dL 7-17 H (test code = BUN) GLOMERULAR FILTRATION 33 >60 L The es timated RATE (test code = GFR) glome rular filtration rate is compute d usingpatient ra ce, age (>18), sex, and serum creatinin e. If anyof the neede d data elements are mi ssing the Laboratory cannot compute an veronica mation of the glomerul ar filtration rate . CREATININE (test code 1.6 mg/dL 0.5-1.0 H = CREAT) TOTAL PROTEIN (test 7.2 g/dL 6.3-8.2 N code = PROT) ALBUMIN (test code = 4.2 g/dL 3.5-5.0 N ALB) CALCIUM (test code = 9.9 mg/dL 8.4-10.2 N CA) BILIRUBIN TOTAL (test 0.7 mg/dL 0.2-1.3 N code = BILT) BILIRUBIN CONJUGATED 0 mg/dL 0-0.3 N ~~~~~~~ ~~~~~~~~~~~~~~ (test code = BILCON) ~~~~~~~ ~~~~~~~~~~~~~~ ~~~~~~~~~~~~~~~ ~~~CON JUGATED BILIRUB IN IS THE REPLACEMENT ASSAY FOR DIRECTBILIRUBIN .~~~~~ ~~~~~~~~~~~~~~~ ~~~~~~ ~~~~~~~~~~~~~~~ ~~~~~~ ~~~~~~~~~~~~~ BILIRUBIN UNCONJUGATED 0.3 mg/dL 0-1.1 N (test code = BILUNC) SGOT/AST (test code = 22 U/L 15-46 N AST) SGPT/ALT (test code = < 13 U/L 13-69 L ALT) ALKALINE PHOSPHATASE 73 U/L 38-126 N (test code = ALKP) [id number] 14:34:00 Test Item Value Reference Range Interpretation Comments MAGNESIUM (test code = MAG) 1.9 mg/dL 1.6-2.3 N NT PRO-BRAIN NATRIURETIC [id number] 14:34:00 Test Item Value Reference Range Interpretation Comments NT PRO-BRAIN 31194 pg/mL 0-299 H ~~~~~~~~~~~~~~~ ~~~~~~~~ NATRIURETIC PEPTI ~~~~~~~~~~ ~~~~~~~~~~~~~ (test code = ~~~~~~~~~~~~~~N T PROBNP) PRO-BNP IS THE REPLACEMENT ASS AY FOR BNP.~~~~~~~~~~~ ~~~~~~~~ ~~~~~~~~~~~~~~~ ~~~~~~~~ ~~~~~~~~~~~~~~~ ~~~RULE- IN CUT POINTS F OR PATIENTS WITH S USPECTED ACUTECONGESTIVE HEART FAILURE:<50 yrs old: >450 pg/mL50-75 yrs old: >900 pg/mL >75 yrs old: >1800 pg/mL A positive bias m ay occur on patients clair ing BIOTINsupplemen ts. COMPREHENSIVE METABOLIC [id number] 14:31:00 Test Item Value Reference Range Interpretation Comments SODIUM (test code = 141 mmol/L 137-145 N NA) POTASSIUM (test code = 4.2 mmol/L 3.4-5.0 N K) CHLORIDE (test code = 101 mmol/L 98-107 N CL) CARBON DIOXIDE (test 29 mmol/L 22-30 N code = CO2) GLUCOSE (test code = 319 mg/dL 74-106 H GLU) BLOOD UREA NITROGEN 37 mg/dL 7-17 H (test code = BUN) GLOMERULAR FILTRATION 33 >60 L The es timated RATE (test code = GFR) glome rular filtration rate is compute d usingpatient ra ce, age (>18), sex, and serum creatinin e. If anyof the neede d data elements are mi ssing the Laboratory cannot compute an veronica mation of the glomerul ar filtration rate . CREATININE (test code 1.6 mg/dL 0.5-1.0 H = CREAT) TOTAL PROTEIN (test 7.2 g/dL 6.3-8.2 N code = PROT) ALBUMIN (test code = 4.2 g/dL 3.5-5.0 N ALB) CALCIUM (test code = 9.9 mg/dL 8.4-10.2 N CA) BILIRUBIN TOTAL (test 0.7 mg/dL 0.2-1.3 N code = BILT) BILIRUBIN CONJUGATED 0 mg/dL 0-0.3 N ~~~~~~~ ~~~~~~~~~~~~~~ (test code = BILCON) ~~~~~~~ ~~~~~~~~~~~~~~ ~~~~~~~~~~~~~~~ ~~~CON JUGATED BILIRUB IN IS THE REPLACEMENT ASSAY FOR DIRECTBILIRUBIN .~~~~~ ~~~~~~~~~~~~~~~ ~~~~~~ ~~~~~~~~~~~~~~~ ~~~~~~ ~~~~~~~~~~~~~ BILIRUBIN UNCONJUGATED 0.3 mg/dL 0-1.1 N (test code = BILUNC) SGOT/AST (test code = 22 U/L 15-46 N AST) SGPT/ALT (test code = < 13 U/L 13-69 L ALT) ALKALINE PHOSPHATASE 73 U/L 38-126 N (test code = ALKP) [id number] 14:31:00 Test Item Value Reference Range Interpretation Comments MAGNESIUM (test code = MAG) 1.9 mg/dL 1.6-2.3 N NT PRO-BRAIN NATRIURETIC [id number] 14:31:00 Test Item Value Reference Range Interpretation Comments NT PRO-BRAIN NATRIURETIC PEPTI (test pg/mL 0-299 code = PROBNP) COMPREHENSIVE METABOLIC [id number] 14:27:00 Test Item Value Reference Range Interpretation Comments SODIUM (test code = 141 mmol/L 137-145 N NA) POTASSIUM (test code = 4.2 mmol/L 3.4-5.0 N K) CHLORIDE (test code = 101 mmol/L 98-107 N CL) CARBON DIOXIDE (test 29 mmol/L 22-30 N code = CO2) GLUCOSE (test code = 319 mg/dL 74-106 H GLU) BLOOD UREA NITROGEN 37 mg/dL 7-17 H (test code = BUN) GLOMERULAR FILTRATION 33 >60 L The es timated RATE (test code = GFR) glome rular filtration rate is compute d usingpatient ra ce, age (>18), sex, and serum creatinin e. If anyof the neede d data elements are mi ssing the Laboratory cannot compute an veronica mation of the glomerul ar filtration rate . CREATININE (test code 1.6 mg/dL 0.5-1.0 H = CREAT) TOTAL PROTEIN (test 7.2 g/dL 6.3-8.2 N code = PROT) ALBUMIN (test code = 4.2 g/dL 3.5-5.0 N ALB) CALCIUM (test code = 9.9 mg/dL 8.4-10.2 N CA) BILIRUBIN TOTAL (test 0.7 mg/dL 0.2-1.3 N code = BILT) BILIRUBIN CONJUGATED 0 mg/dL 0-0.3 N ~~~~~~~ ~~~~~~~~~~~~~~ (test code = BILCON) ~~~~~~~ ~~~~~~~~~~~~~~ ~~~~~~~~~~~~~~~ ~~~CON JUGATED BILIRUB IN IS THE REPLACEMENT ASSAY FOR DIRECTBILIRUBIN .~~~~~ ~~~~~~~~~~~~~~~ ~~~~~~ ~~~~~~~~~~~~~~~ ~~~~~~ ~~~~~~~~~~~~~ BILIRUBIN UNCONJUGATED 0.3 mg/dL 0-1.1 N (test code = BILUNC) SGOT/AST (test code = 22 U/L 15-46 N AST) SGPT/ALT (test code = < 13 U/L 13-69 L ALT) ALKALINE PHOSPHATASE 73 U/L 38-126 N (test code = ALKP) [id number] 14:27:00 Test Item Value Reference Range Interpretation Comments MAGNESIUM (test code = MAG) mg/dL 1.6-2.3 NT PRO-BRAIN NATRIURETIC [id number] 14:27:00 Test Item Value Reference Range Interpretation Comments NT PRO-BRAIN NATRIURETIC PEPTI (test pg/mL 0-299 code = PROBNP) CBC W/AUTO [id number] 14:04:00 Test Item Value Reference Range Interpretation Comments WHITE BLOOD CELL (test code = 9.8 x10 3/uL 5.0-12.0 N WBC) RED BLOOD CELL (test code = 4.02 x10 6/uL 4.20-5.40 L RBC) HEMOGLOBIN (test code = HGB) 11.2 g/dL 12.0-16.0 L HEMATOCRIT (test code = HCT) 35.2 % 36.0-46.0 L MEAN CELL VOLUME (test code = 88 fL 81-99 N MCV) MEAN CELL HGB (test code = MCH) 27.9 pg 27-31 N MEAN CELL HGB CONCENTRATION 31.8 g/dL 33-37 L (test code = MCHC) RED CELL DISTRIBUTION WIDTH 15.8 % 11.5-15.5 H (test code = RDW) PLATELET COUNT (test code = 404 x10 3/uL 130-400 H PLT) MEAN PLATELET VOLUME (test code 10.6 fL 9.4-16.4 N = MPV) NEUTROPHIL % (test code = NT%) 81.4 % 43-65 H IMMATURE GRANULOCYTE % (test 0.8 % 0.0-2.0 N code = IG%) LYMPHOCYTE % (test code = LY%) 7.6 % 20.5-45.5 L MONOCYTE % (test code = MO%) 10.2 % 5.5-11.7 N EOSINOPHIL % (test code = EO%) 0.0 % 0.9-2.9 L BASOPHIL % (test code = BA%) 0.0 % 0.2-1.0 L NUCLEATED RBC % (test code = 0.0 % 0-1.0 N NRBC%) NEUTROPHIL # (test code = NT#) 7.94 x10 3/uL 2.2-4.8 H IMMATURE GRANULOCYTE # (test 0.08 x10 3/uL 0-0.03 H code = IG#) LYMPHOCYTE # (test code = LY#) 0.74 x10 3/uL 1.3-2.9 L MONOCYTE # (test code = MO#) 0.99 x10 3/uL 0.3-0.8 H EOSINOPHIL # (test code = EO#) 0.00 x10 3/uL 0.0-0.2 N BASOPHIL # (test code = BA#) 0.00 x10 3/uL 0.0-0.1 N [id number] 08:25:00 Test Item Value Reference Range Interpretation Comments GLUBED (test code = GLUBED) 274 MG/DL 74-106 H [id number] 22:02:00 Test Item Value Reference Range Interpretation Comments GLUBED (test code = GLUBED) 315 MG/DL 74-106 H [id number] 16:18:00 Test Item Value Reference Range Interpretation Comments GLUBED (test code = GLUBED) 342 MG/DL 74-106 H [id number] 13:03:00 Test Item Value Reference Range Interpretation Comments GLUBED (test code = GLUBED) 381 MG/DL 74-106 H - PULM VENT PERF [id number] 10:11:00 FAX: Rebecca Coronel [phone] [place]: St: ADM FAX: Trenton Rodriguez MD [phone] FAX: Sam Bean MD [phone] Name: JACQUIE HANKINS [facility] : 1940 Age/S: 78/F [address] Unit #: [id number] Loc: C.220[address] [place] [address] Phys: Sam Crawley MD Acct: [id number] Dis Date: Status: ADM IN PHONE #: [phone] Exam Date: 09/14/2018 1000 FAX #: [phone] Reason: pe EXAMS: CPT CODE: [id number] PULM VENT PERF IMAG [id number] EXAM: - PULM VENT PERF IMAG HISTORY: Pain RADIOPHARMACEUTICAL: 6 mCi Tc 99 MAA and 15 mCi Xe-133 gas. COMPARISON: CT chest performed on 09/13/2018 FINDINGS: VENTILATION: There is homogeneous distribution of radiotracer on the breath-hold images. Minimal basilar retention is seen on the washout images. PERFUSION: There is mild heterogeneous distribution of radiotracer throughout both lungs. No segmental pleural based perfusion abnormalities demonstrated. IMPRESSION: 1. Low probability for pulmonary embolus. at 1011 Reported and signed by: Matty Solis M.D. CC: Jaquelin Yoder MD; Trenton Leger MD; Sam Crawley MD Technologist: CHRISSIE RASMUSSEN [facility] Date/Time/By: 09/14/2018 (1011) : By: [email or web address] PAGE 1 Signed Report FAX: Rebecca Coronel [phone] [place]: St: ADM FAX: Trenton Rodriguez MD [phone] FAX: Sam Bean MD [phone] Name: JACQUIE HANKINS [facility] : 1940 Age/S: 78/F [address] Unit #: [id number] Loc: C.220[address] [place] [address] Phys: Sam Crawley MD Acct: [id number] Dis Date: Status: ADM IN PHONE #: [phone] E xam Date: 09/14/2018 1000 FAX #: [phone] Reason: pe EXAMS: CPT CODE: [id number] PULM VENT PERF IMAG [id number] <Continued> Orig Print D/T: S: 09/14/2018 (1014) PAGE 2 Signed [id number] 09:35:00 Test Item Value Reference Range Interpretation Comments GLUBED (test code = GLUBED) 293 MG/DL 74-106 H CARDIAC ENZYMES [id number] 03:30:00 Test Item Value Reference Range Interpretation Comments CREATINE KINASE 63 U/L 30-135 N (CK) (test code = CK) CKMB (test code = 1.08 ng/mL 0.5-5.0 CKMBT) TROPONIN-I (test < 0.012 ng/mL 0.012-0.033 L code = TROPI) P lease be advised of the updated reference range s for the new Material Manager ry instrumentation . VITROS TROPO LOLI I CRITERIANORM AL PATIENT W/O CIR CULATING TNI: 0.012-0.03 3 ng/mLCIRCULATIN G TNI PRESENT: 0.034- 0.119 ng/mL(MAY BE AT RISK OF AMI)AMI DIAGNOS TIC CUTOFF: >/= 0.1 20 ng/mL~~~~~~~~~~ ~~~~~~~~ ~~~~~~~~~~~~~~~ ~~~~~~~~ ~~~~~~~~~~~~~~~ ~~~The use of serial s ampling and testing pro tocol is arecommended practice.An stacy vated troponin level alone is often not suffi cient fordiagnosis of myocardial infa rction. Troponin result s obtained by dif ferent assays may vary.Evaluation of the extent of myoca rdial damage based on increase of troponin wou ld be valid only if similarmethodol ogy is used.~~~~~~~~~~ ~~~~~~~~ ~~~~~~~~~~~~~~~ ~~~~~~~~ ~~~~~~~~~~~~~~~ ~~~ Spec Comments: Cancel third set if POC Troponin completed in ED CARDIAC ENZYMES [id number] 03:17:00 Test Item Value Reference Range Interpretation Comments CREATINE KINASE (CK) (test code = CK) 63 U/L 30-135 N CKMB (test code = CKMBT) ng/mL 0.5-5.0 TROPONIN-I (test code = TROPI) ng/mL 0.012-0.033 Spec Comments: Cancel third set if POC Troponin completed in ED- CT CHEST W/O [id number] 23:08:00 FAX: Rebecca Coronel [phone] [place]: St: ADM FAX: Trenton Rodriguez IM [phone] FAX: Sam Bean MD [phone] Name: JACQUIE HANKINS [facility] : 1940 Age/S: 78/F [address] Unit: [id number] Loc: C.220[address] [place] [address] Phys: Sam Crawley MD Acct: [id number] Dis Date: Status: ADM IN PHONE #: [phone] Exam Date: 09/13/2018 1650 FAX #: [phone] Reason: pe EXAMS: CPT CODE: [id number] CT CHEST W/O CONTRAST 84406 LOCATION: V20 EXAM: - CT CHEST W/O CONTRAST HISTORY: pe TECHNIQUE: Axial imaging of the chest from the base of the neck through the upper abdomen without the administration of intravenous contrast. Sagittal and coronal reconstructions. CT scan performed using appropriate/available dose optimization/reduction techniques. DLP 314.66 mGy*cm COMPARISON:None. FINDINGS: Dense streak artifact originating in a right humeral prosthesis, limiting assessment in the superior chest. The visualized thyroid gland is unremarkable. Bor derline enlarged mediastinal lymph nodes are present, measuring up to 10 mm short axis in the right paratracheal station. Mild atherosclerosis normal caliber thoracic aorta. Mild cardiomegaly. No pericardial effusion. Small dependent pleural effusions are prese nt, associated with dense subjacent consolidation compatible with atelectasis. The lungs are otherwise clear. The trachea and central bronchi are patent. Evaluation the visualized portion of the upper abdomen is limited in the absence of intravenous contrast. Multiple ill-defined low-density lesions of varying size are present in the liver. Many of these are subcentimeter in size and too small to characterize. The largest is in the superior right hepatic lobe measuring 3.5 cm centimeters, and of fluid density. Moderate atherosclerosis is present along the visualized upper abdominal aorta. IMPRESSION: PAGE 1 Signed Report (CONTINUED) FAX: Rebecca Coronel [phone] [place]: St: [facility] FAX: Trenton Rodriguez MD [phone] FAX: Sam Bean MD [phone] Name: JACQUIE HANKINS [facility] : 1940 Age/S: 78/F [address] Unit: [id number] Loc:C.[address] [place] [address] Phys: Sam Crawley MD Acct: [id number] Dis Date: Status: ADM IN PHONE #: [phone] Exam Date: 09/13/2018 1650 FAX #: [phone] Reason: pe EXAMS: CPT CODE: [id number] CT CHEST W/O CONTRAST 79236 <Continued> 1. Note that although the given history is of "PE," the possibility of pulmonary embolism cannot be evaluated in the absence of intravenous contrast. 2. Small bilateral pleural effusions and subjacent compressive atelectasis. 3. Multiple ill-defined low-density lesions of varying size are present in the liver. Those large enough to characterize are of fluid density. This likely represent cysts, however given the ill-defined margins recommend further assessment with multiphasic CT. If the patient is unable to receive intravenous contrast, ultrasound evaluation is recommended. at 2308 Reported and signed by: Miley Mehta MD CC: Jaquelin Yoder MD; Trenton Jin MD; Sam Crawley MD Technologist: SHADY ALBERT Trnveenard Dt/Tm: 09/13/2018 (2306) t.[email or web address] Orig Print D/T: S: 09/13/2018 (5291 PAGE2 Signed [id number] 21:10:00 Test Item Value Reference Range Interpretation Comments GLUBED (test code = GLUBED) 297 MG/DL 74-106 H CARDIAC ENZYMES [id number] 19:44:00 Test Item Value Reference Range Interpretation Comments CREATINE KINASE 62 U/L 30-135 N (CK) (test code = CK) CKMB (test code = 1.00 ng/mL 0.5-5.0 CKMBT) TROPONIN-I (test < 0.012 ng/mL 0.012-0.033 L code = TROPI) P lease be advised of the updated reference range s for the new Material Manager ry instrumentation . VITROS TROPO LOLI I CRITERIANORM AL PATIENT W/O CIR CULATING TNI: 0.012-0.03 3 ng/mLCIRCULATIN G TNI PRESENT: 0.034- 0.119 ng/mL(MAY BE AT RISK OF AMI)AMI DIAGNOS TIC CUTOFF: >/= 0.1 20 ng/mL~~~~~~~~~~ ~~~~~~~~ ~~~~~~~~~~~~~~~ ~~~~~~~~ ~~~~~~~~~~~~~~~ ~~~The use of serial s ampling and testing pro tocol is arecommended practice.An stacy vated troponin level alone is often not suffi cient fordiagnosis of myocardial infa rction. Troponin result s obtained by dif ferent assays may vary.Evaluation of the extent of myoca rdial damage based on increase of troponin wou ld be valid only if similarmethodol ogy is used.~~~~~~~~~~ ~~~~~~~~ ~~~~~~~~~~~~~~~ ~~~~~~~~ ~~~~~~~~~~~~~~~ ~~~ Spec Comments: Cancel third set if POC Troponin completed in ED CARDIAC ENZYMES [id number] 19:07:00 Test Item Value Reference Range Interpretation Comments CREATINE KINASE (CK) (test code = CK) 62 U/L 30-135 N CKMB (test code = CKMBT) ng/mL 0.5-5.0 TROPONIN-I (test code = TROPI) ng/mL 0.012-0.033 Spec Comments: Cancel third set if POC Troponin completed in ED- DUP VEIN [id number] 17:43:00 FAX: Rebecca Coronel [phone] [place]: St: ADM FAX: Trenton Rodriguez MD [phone] FAX: Sam Bean MD [phone] Name: JACQUIE HANKINS [facility] : 1940 Age/S: 78/F [address] Unit #: [id number] Loc: C.[address] [place] [address] Phys: Sam Crawley MD Acct: [id number] Dis Date: Status: ADM IN PHONE #: [phone] Exam Date: 09/13/2018 1627 FAX #: [phone] Reason: dvt EXAMS: CPT CODE: [id number] DUP VEIN AUDREY 87669 EXAM: - DUP VEIN AUDREY Location code:C3 HISTORY: 78 years -old Female with dvt TECHNIQUE: Survey ultrasound imaging of thedeep venous system of bilateral lower extremities was performed including color and spectral Doppler evaluation with freight representative images obtained. Segmental venous compression and calf vein augmentation were performed. COMPARISON: None FINDINGS: Statements: None. Right Lower Extremity: Common femoral vein: Patent without thrombus. Normal respiratory phasicity is indirect evidence of central patency. Cephalad greater saphenous vein: Patent without thrombus. Cephalad profunda femoral vein: Patent without thrombus. Femoral vein: Patent without thrombus. Popliteal vein: Patent without thrombus. Normal response to augmentation. Left Lower Extremity: Common femoral vein: Patent without thrombus. Normal respiratory phasicity is indirect evidence of central patency. Cephalad greater saphenous vein: Patent without thrombus. Cephalad profunda femoral vein: Patent without thrombus. Femoral vein: Patent without thrombus. Popliteal vein: Patent without thrombus. Normal response to augmentation. Other: None. IMPRESSION: No evidence of DVT within the bilateral lower extremity venous system. PAGE 1 Signed Report (CONTINUED) FAX: Rebecca Coronel [phone] [place]: St: ADM FAX: Trenton Rodriguez MD [phone] FAX: Sam Bean MD [phone] Name: JACQUIE HANKINS [facility] : 1940 Age/S: 78/F [address] Unit #: [id number] Loc: C.[address] [place] [address] Phys: Sam Crawley MD Acct: [id number] Dis Date: Status: ADM IN PHONE #: [phone] Exam Date: 09/13/2018 1627 FAX #: [phone] Reason: dvt EXAMS: CPT CODE: [id number] DUP VEIN AUDREY 82720 <Continued> at 1743 Reported and signed by: Matty Solis M.D. CC: Jaquelin Yoder MD; Trenton Leger MD; Sam Crawley MD Technologist: Leonor Dejesus Date/Time/By: 09/13/2018 (3602) : By: [email or web address] PAGE 2 Signed Report FAX: Rebecca Coronel [phone] [place]: St: ADM FAX: Trenton Rodriguez MD [phone] FAX: Sam Bean MD [phone] Name: JACQUIE HANKINS [facility] : 1940 Age/S: 78/F [address] Unit #: [id number] Loc: C.[address] [place] [address] Phys: Sam Crawley MD Acct: [id number] Dis Date: Status: ADM IN PHONE #: [phone] Exam Date: 09/13/2018 1623 FAX #: [phone] Reason: dvt EXAMS: CPT CODE: [id number] DUP VEIN AUDREY 07297 <Continued> Orig Print D/T: S: 09/13/2018 (1746) PAGE 3 Signed [id number] 16:38:00 Test Item Value Reference Range Interpretation Comments GLUBED (test code = GLUBED) 249 MG/DL 74-106 H CARDIAC ENZYMES [id number] 15:30:00 Test Item Value Reference Range Interpretation Comments CREATINE KINASE 78 U/L 30-135 N (CK) (test code = CK) CKMB (test code = 1.22 ng/mL 0.5-5.0 N CKMBT) TROPONIN-I (test 0.013 ng/mL 0.012-0.033 N code = TROPI) Ple ase be advised of the updated reference range s for the new Chemistry instrumentation . VITROS TROPO LOLI I CRITERIANORM AL PATIENT W/O CIR CULATING TNI: 0.012-0.03 3 ng/mLCIRCULATIN G TNI PRESENT: 0.034- 0.119 ng/mL(MAY BE AT RISK OF AMI)AMI DIAGNOS TIC CUTOFF: >/= 0.1 20 ng/mL~~~~~~~~~~ ~~~~~~~~~ ~~~~~~~~~~~~~~~ ~~~~~~~~~ ~~~~~~~~~~~~~~~ ~The use of serial sampl ing and testing protoco l is arecommended pr actice.An elevated tropon in level alone is often not sufficient chaney iagnosis of myocardial infarction. Tro ponin results obtaine d by different assay s may vary.Evaluation of the extent of myoca rdial damage based on increase of troponin wou ld be valid only if similarmethodol ogy is used.~~~~~~~~~~ ~~~~~~~~~ ~~~~~~~~~~~~~~~ ~~~~~~~~~ ~~~~~~~~~~~~~~~ ~ Spec Comments: Cancel third set if POC Troponin completed in ED CARDIAC ENZYMES [id number] 15:18:00 Test Item Value Reference Range Interpretation Comments CREATINE KINASE (CK) (test code = CK) 78 U/L 30-135 N CKMB (test code = CKMBT) ng/mL 0.5-5.0 TROPONIN-I (test code = TROPI) ng/mL 0.012-0.033 Spec Comments: Cancel third set if POC Troponin completed in ED [id number] 11:58:00 Test Item Value Reference Range Interpretation Comments GLUBED (test code = GLUBED) 168 MG/DL 74-106 H [id number] 08:34:00 Test Item Value Reference Range Interpretation Comments GLUBED (test code = GLUBED) 171 MG/DL 74-106 H [id number] 21:38:00 Test Item Value Reference Range Interpretation Comments GLUBED (test code = GLUBED) 146 MG/DL 74-106 H - XR CHEST 1 [id number] 16:26:00 FAX: Rebecca Coronel [phone] [place]: St: ADM FAX: Trenton Rodriguez MD [phone] FAX: Sam Bean MD [phone] Name: JACQUIE HANKINS [facility] : 1940 Age/S: 78/F [address] Unit #: [id number] Loc: C220[address] [place] [address] Phys: Sam Crawley MD Acct: [id number] Dis Date: Status: ADM IN PHONE #: [phone] Exam Date: 09/12/2018 1543 FAX #: [phone] Reason: asp pna EXAMS: CPT CODE: [id number] XR CHEST 1 V 22860 Site ID: [id number] HISTORY: Aspiration pneumonia COMPARISON: Chest x-ray September 05, 2018 FINDINGS: No findings of high concern for pneumonia or acute aspiration. Heart size is within normal limits for portable technique. No acute osseous finding. IMPRESSION: No findings of high concern for pneumonia or acute aspiration. at 7698 Reported and signed by: Landon Farrell MD CC: Jaquelin Yoder MD; Trenton Leger MD; Sam Crawley MD Technologist: Wilbert Rasmussen Trnctrd Date/Time/By: 09/12/2018 (1024) : By: [email or web address] PAGE 1 Signed Report FAX: Rebecca Coronel [phone] [place]: St: ADM FAX: Trenton Rodriguez MD [phone] FAX: Sam Bean MD [phone] Name: JACQUIE HANKINS [facility] [place] : 1940 Age/S: 78/F [address] Unit #: [id number] Loc: [place] [address] Phys: Sam Crawley MD Acct: [id number] Dis Date: Status: ADM IN PHONE #: [phone] Exam Date: 09/12/2018 1543 FAX #: [phone] Reason: asp pna EXAMS: CPT CODE: [id number] XR CHEST 1 V 17297 <Continued> Orig Print D/T: S: 09/12/2018 (7548) PAGE 2 Signed [id number] 15:46:00 Test Item Value Reference Range Interpretation Comments GLUBED (test code = GLUBED) 127 MG/DL 74-106 H [id number] 12:15:00 Test Item Value Reference Range Interpretation Comments GLUBED (test code = GLUBED) 200 MG/DL 74-106 H COMPREHENSIVE METABOLIC [id number] 12:02:00 Test Item Value Reference Range Interpretation Comments SODIUM (test code = 141 mmol/L 137-145 N NA) POTASSIUM (test code = 4.4 mmol/L 3.4-5.0 N K) CHLORIDE (test code = 101 mmol/L 98-107 N CL) CARBON DIOXIDE (test 27 mmol/L 22-30 N code = CO2) GLUCOSE (test code = 199 mg/dL 74-106 H GLU) BLOOD UREA NITROGEN 28 mg/dL 7-17 H (test code = BUN) GLOMERULAR FILTRATION 39 >60 L The es timated RATE (test code = GFR) glome rular filtration rate is compute d usingpatient ra ce, age (>18), sex, and serum creatinin e. If anyof the neede d data elements are mi ssing the Laboratory cannot compute an veronica mation of the glomerul ar filtration rate . CREATININE (test code 1.4 mg/dL 0.5-1.0 H = CREAT) TOTAL PROTEIN (test 6.2 g/dL 6.3-8.2 L code = PROT) ALBUMIN (test code = 3.8 g/dL 3.5-5.0 N ALB) CALCIUM (test code = 8.8 mg/dL 8.4-10.2 N CA) BILIRUBIN TOTAL (test 0.6 mg/dL 0.2-1.3 N code = BILT) BILIRUBIN CONJUGATED 0 mg/dL 0-0.3 N ~~~~~~~ ~~~~~~~~~~~~~~ (test code = BILCON) ~~~~~~~ ~~~~~~~~~~~~~~ ~~~~~~~~~~~~~~~ ~~~CON JUGATED BILIRUB IN IS THE REPLACEMENT ASSAY FOR DIRECTBILIRUBIN .~~~~~ ~~~~~~~~~~~~~~~ ~~~~~~ ~~~~~~~~~~~~~~~ ~~~~~~ ~~~~~~~~~~~~~ BILIRUBIN UNCONJUGATED 0.2 mg/dL 0-1.1 N (test code = BILUNC) SGOT/AST (test code = 24 U/L 15-46 N AST) SGPT/ALT (test code = 15 U/L 13-69 N ALT) ALKALINE PHOSPHATASE 49 U/L 38-126 N (test code = ALKP) [id number] 12:02:00 Test Item Value Reference Range Interpretation Comments MAGNESIUM (test code = MAG) 1.6 mg/dL 1.6-2.3 N CBC W/AUTO [id number] 11:50:00 Test Item Value Reference Range Interpretation Comments WHITE BLOOD CELL (test code = 7.6 x10 3/uL 5.0-12.0 N WBC) RED BLOOD CELL (test code = 3.75 x10 6/uL 4.20-5.40 L RBC) HEMOGLOBIN (test code = HGB) 10.4 g/dL 12.0-16.0 L HEMATOCRIT (test code = HCT) 34.0 % 36.0-46.0 L MEAN CELL VOLUME (test code = 91 fL 81-99 N MCV) MEAN CELL HGB (test code = MCH) 27.7 pg 27-31 N MEAN CELL HGB CONCENTRATION 30.6 g/dL 33-37 L (test code = MCHC) RED CELL DISTRIBUTION WIDTH 15.9 % 11.5-15.5 H (test code = RDW) PLATELET COUNT (test code = 293 x10 3/uL 130-400 N PLT) MEAN PLATELET VOLUME (test code 11.0 fL 9.4-16.4 N = MPV) NEUTROPHIL % (test code = NT%) 60.5 % 43-65 N IMMATURE GRANULOCYTE % (test 0.5 % 0.0-2.0 N code = IG%) LYMPHOCYTE % (test code = LY%) 22.1 % 20.5-45.5 N MONOCYTE % (test code = MO%) 12.8 % 5.5-11.7 H EOSINOPHIL % (test code = EO%) 3.7 % 0.9-2.9 H BASOPHIL % (test code = BA%) 0.4 % 0.2-1.0 N NUCLEATED RBC % (test code = 0.0 % 0-1.0 N NRBC%) NEUTROPHIL # (test code = NT#) 4.59 x10 3/uL 2.2-4.8 N IMMATURE GRANULOCYTE # (test 0.04 x10 3/uL 0-0.03 H code = IG#) LYMPHOCYTE # (test code = LY#) 1.68 x10 3/uL 1.3-2.9 N MONOCYTE # (test code = MO#) 0.97 x10 3/uL 0.3-0.8 H EOSINOPHIL # (test code = EO#) 0.28 x10 3/uL 0.0-0.2 H BASOPHIL # (test code = BA#) 0.03 x10 3/uL 0.0-0.1 N [id number] 08:32:00 Test Item Value Reference Range Interpretation Comments GLUBED (test code = GLUBED) 177 MG/DL 74-106 H [id number] 20:27:00 Test Item Value Reference Range Interpretation Comments GLUBED (test code = GLUBED) 248 MG/DL 74-106 H [id number] 17:16:00 Test Item Value Reference Range Interpretation Comments GLUBED (test code = GLUBED) 179 MG/DL 74-106 H [id number] 11:02:00 Test Item Value Reference Range Interpretation Comments GLUBED (test code = GLUBED) 109 MG/DL 74-106 H [id number] 08:40:00 Test Item Value Reference Range Interpretation Comments GLUBED (test code = GLUBED) 131 MG/DL 74-106 H - XR CHEST 2 [id number] 15:39:00 FAX: Rebecca Coronel [phone] [place]: St: PRE FAX: Trenton Rodriguez MD [phone] Name: JACQUIE HANKINS [facility] : 1940 Age/S: 78/F [address] Unit #: [id number] Loc: [place] [address] Phys: Trenton Leger MD Acct: C [id number] Dis Date: Status: PRE SDC PHONE #: [phone] Exam Date: 09/05/2018 1528 FAX #: [phone] Reason: PREOP SLEEP APNEA EXAMS: CPT CODE: [id number] XR CHEST 2 V 19503 Chest x-ray 2 views History: PREOP SLEEP APNEA Comparison: May 12, 2018 Location: R16 Number of images: 2 The heart appears unchanged in size. Pulmonary vasculature is unremarkable. The visualized lung alvarado appear to be free of disease. The bones appear unchanged. IMPRESSION: There is no radiographic evidence of acute cardiopulmonary disease. at 1539 Reported and signed by: Wesley Lizarraga MD CC: Jaquelin Yoder MD; Trenton Leger MD Technologist: Wilbert Rasmussen; STUDENT 2ND YEAR Trnscrd Date/Time/By: 09/05/2018 (5979) : By: JoyPMT PAGE 1 Signed Report FAX: Rebecca Coronel [phone] [place]: St: PRE FAX: Trenton Rodriguez MD [phone] Name: JACQUIE HANKINS [facility] : 1940 Age/S: 78/F [address] Unit #: [id number] Loc: [place] [address] Phys: Trenton Leger MD Acct: [id number] Dis Date: Status: PRE SDC PHONE #: [phone] Exam Date: 09/05/2018 1528 FAX #: [phone] Reason: PREOP SLEEP APNEA EXAMS: CPT CODE: [id number] XR CHEST 2 V 69676 <Continued> Orig Print D/T: S: 09/05/2018 (1542) PAGE 2 Signed Report
--- NOTE | 2022-01-06 13:51 | RAD REPORT ---
EXAM DESCRIPTION: CT - Head C Spine Mpr Wo Con - 01/06/2022 1:37 pm CLINICAL HISTORY: Head and neck injury status post fall. Head and neck pain COMPARISON: None. TECHNIQUE: Computed axial tomography of the head and cervical spine was obtained. Sagittal and coronal reconstruction was performed. All CT scans are performed using dose optimization technique as appropriate and may include automated exposure control or mA/KV adjustment according to patient size. FINDINGS: Right scalp hematoma. An intracranial bleed is not seen. The ventricles are normal in caliber. An extra-axial fluid collect ion is not noted. Fluid within the left maxillary sinus. Cortical irregularity involves the left orbital floor likely a nondisplaced fracture A cervical fracture is not visualized. No dislocation is noted. IMPRESSION: No acute intracranial abnormality is seen. Nondisplaced left orbital floor fracture is suspected A cervical fracture is not visualized. If the patient continues to have symptoms to suggest intracra nial /spinal cord pathology then MRI would be recommended
[2022-01-06] MEDS ORDERED: LIDOCAINE 1% MPF 5 ML VIAL ONE (14:23)
--- NOTE | 2022-01-06 15:09 | EDPHYS ---
Physician Documentation [facility] Name: April Lima Age: 81 yrs Sex: Female : 1940 Arrival Date: 01/06/2022 Time: 12:12 Bed 10 Private MD: ED Physician Gamal Jurado HPI: 01/06 12:40 This 81 yrs old Female presents to ER via Ambulatory with complaints of Head Injury pm1 Without LOC-Adult, Fall Injury. 12:40 The patient or guardian reports a laceration, pain. The complaints affect the right pm1 occipital area. Context of injury: The problem was sustained at home, resulted from tripped on chair and fell backwards. Onset: The symptoms/episode began/occurred today. Associated signs and symptoms: Loss of consciousness: This patient did not experience any loss of consciousness. Pertinent positives: headache, Pertinent negatives: neck pain. Severity of symptoms: in the emergency department the symptoms have improved. The patient has not experienced similar symptoms in the past. The patient has not recently seen a physician. 12:40 Patient able to get up and walk with her walker after the fall injury. pm1 Historical: - Allergies: 12:37 No Known Allergies; jl7 - PMHx: 12:37 Hypertensive disorder; Diabetes mellitus; jl7 - Immunization history:: Adult Immunizations unknown. - Social history:: Smoking status: Patient denies any tobacco usage or history of. ROS: 12:40 Constitutional: Negative for fever, chills, and weight loss, Cardiovascular: Negative pm1 for chest pain, palpitations, and edema, Respiratory: Negative for shortness of breath, cough, wheezing, and pleuritic chest pain, Abdomen/GI: Negative for abdominal pain, nausea, vomiting, diarrhea, and constipation, Back: Negative for injury and pain, MS/Extremity: Negative for injury and deformity. 12:40 Skin: Positive for laceration(s), swelling, of the right occipital area. 12:40 Neuro: Positive for headache, Negative for dizziness, loss of consciousness, numbness, tingling, weakness. 12:40 All other systems are negative. pm1 Exam: 12:40 Constitutional: This is a well developed, well nourished patient who is awake, alert, pm1 and in no acute distress. 12:40 Back: No spinal tenderness. No costovertebral tenderness. Full range of motion. Skin: Warm, dry with normal turgor. Normal color with no rashes, no lesions, and no evidence of cellulitis. MS/ Extremity: Pulses equal, no cyanosis. Neurovascular intact. Full, normal range of motion. 12:40 Head/face: Noted is no obvious of injury or deformity except a laceration(s), of the right occipital area. 12:40 Eyes: Exam is negative for acute changes, Pupils: no acute changes, normal size, normal reaction to light, Extraocular movements: intact throughout, Conjunctiva: no acute changes, no injection, Sclera: no acute changes, icterus, is not appreciated. 12:40 ENT: External ear(s): no acute changes, Ear canal(s): no acute changes, TM's: no acute changes, Mouth: no acute changes, Lips: normal, moist, Voice: no acute changes. 12:40 Cardiovascular: Exam negative for acute changes, Rate: normal, Rhythm: regular, Pulses: no pulse deficits are appreciated, Heart sounds: normal. 12:40 Respiratory: Exam negative for acute changes, respiratory distress, shortness of breath, Breath sounds: are clear throughout. 12:40 Neuro: Exam negative for acute changes, Orientation: is normal, Mentation: is normal, Motor: is normal, moves all fours. Vital Signs: 12:34 BP 149 / 80; Pulse 79; Resp 18; Temp 98.2(O); Pulse Ox 96% on R/A; Weight 74.84 kg (R); jl7 Height 5 ft. 2 in. (157.48 cm) (R); Pain 5/10; 15:00 BP 181 / 79; Pulse 70; Resp 15; Pulse Ox 96% ; jl7 12:34 Body Mass Index 30.18 (74.84 kg, 157.48 cm) 7 15:00 Pt reports she will take her HTN medication when she gets home jl7 [place] Coma Score: 12:40 Eye Response: spontaneous(4). Verbal Response: oriented(5). Motor Response: obeys pm1 commands(6). Total: 15. Laceration: 15:06 Wound Repair of 6cm ( 2.4in ) subcutaneous laceration to right occipital area. Linear pm1 shaped.. Distal neuro/vascular/tendon intact. Anesthesia: Local anesthetic administered with 5 mls of 1% lidocaine. Wound prep: Extensive cleansing with hibiclenz by me, Wound irrigation with saline by me, Wound explored extensively, Copious irrigation. Skin closed with 12 1-0 Prolene using staple gun. Dressed with Neosporin, 4x4's, Kerlix. Patient tolerated well. MDM: 12:16 Patient medically screened. pm1 13:59 Data reviewed: vital signs. Data interpreted: Pulse oximetry: on room air is 96 %. pm1 Interpretation: normal. Counseling: I had a detailed discussion with the patient and/or guardian regarding: radiology results, pending patient go to a ER room for laceration repair. 13:59 Special discussion: I discussed with the patient the need to follow-up with the pm1 PCP/specialist for the noted incidental finding on X-ray/CT scanning. Patient reports no injury or pain present to her face of orbits. Patient reports a fall many months ago to her face with resulting contusion to left eye area and possible old fracture that she believes that is likely what the radiologist is seeing today. 15:06 Counseling: I had a detailed discussion with the patient and/or guardian regarding: the pm1 historical points, exam findings, and any diagnostic results supporting the discharge/admit diagnosis, the need for outpatient follow up, staple removal in 10-14 days, to return to the emergency department if symptoms worsen or persist or if there are any questions or concerns that arise at home. 01/06 12:40 Order name: CT Head C Spine; Complete Time: 13:53 pm1 Administered Medications: 14:15 Not Given (Patient Refused): Tetanus-Diphtheria Toxoid Adult 0.5 ml IM once; Provide jl7 Vaccine Information Statement (VIS). 14:45 Drug: Lidocaine (1 %) 5 ml Volume: 5 ml; Route: Infiltration; jl7 15:12 Follow up: Response: No adverse reaction jl7 Disposition: 15:24 Co-signature as Attending Physician, Gamal Jurado MD I agree with the assessment and kdr plan of care. Disposition Summary: 01/06/22 15:08 Discharge Ordered Location: Home pm1 Problem: new pm1 Symptoms: have improved pm1 Condition: Stable pm1 Diagnosis - Laceration without foreign body of scalp pm1 - Fall on same level, unspecified, initial encounter pm1 Followup: pm1 - With: Emergency Department - When: As needed - Reason: Worsening of condition Followup: pm1 - With: Private Physician - When: 10 - 14 days - Reason: Recheck today's complaints, Continuance of care, Staple/Suture removal, Re-evaluation by your physician Discharge Instructions: - Discharge Summary Sheet pm1 - Head Injury, Adult pm1 - Fall Prevention in the Home, Adult pm1 - Sutures, Ashley, or Adhesive Wound Closure pm1 - Understanding Your Risk for Falls pm1 Forms: - Medication Reconciliation Form pm1 - Thank You Letter pm1 - Antibiotic Education pm1 - Prescription Opioid Use pm1 Prescriptions: - Cephalexin 500 mg Oral Capsule - take 1 capsule by ORAL route every 6 hours for 10 days; 40 capsule; Refills: 0, pm1 Product Selection Permitted Signatures: Dispatcher [employer] EDMS Gamal Jurado MD MD kdr Marinas, Patrick, NP BED LABORER pm1 Jie Sharma RN RN jl7
--- NOTE | 2022-01-06 15:09 | ER ---
Nurse's Notes [facility] Name: April Lima Age: 81 yrs Sex: Female : 1940 Arrival Date: 01/06/2022 Time: 12:12 Bed 10 Private MD: Diagnosis: Laceration without foreign body of scalp;Fall on same level, unspecified, initial encounter Presentation: 01/06 12:35 Chief complaint: Patient states: Got tripped up on a chair and fell backward and hot jl7 posterior head on floor, did not loose consciousness, does not take blood thinners, reports CARUSO. Coronavirus screen: At this time, the client does not indicate any symptoms associated with coronavirus-19. Ebola Screen: No symptoms or risks identified at this time. Initial Sepsis Screen: Does the patient meet any 2 criteria? No. Patient's initial sepsis screen is negative. Does the patient have a suspected source of infection? No. Patient's initial sepsis screen is negative. Risk Assessment: Do you want to hurt yourself or someone else? Patient reports no desire to harm self or others. Onset of symptoms was January 06, 2022. Care prior to arrival: None. 12:35 Method Of Arrival: Ambulatory jl7 12:35 Acuity: DANNY 3 jl7 Triage Assessment: 12:37 General: Appears in no apparent distress. uncomfortable, Behavior is calm, cooperative, jl7 appropriate for age. Pain: Complains of pain in scalp Pain currently is 5 out of 10 on a pain scale. Neuro: Level of Consciousness is awake, alert, obeys commands, Oriented to person, place, time, situation. Cardiovascular: Patient's skin is warm and dry. Respiratory: Airway is patent Respiratory effort is even, unlabored, Respiratory pattern is regular, symmetrical. Derm: Skin is pink, warm \T\ dry. Historical: - Allergies: 12:37 No Known Allergies; jl7 - PMHx: 12:37 Hypertensive disorder; Diabetes mellitus; jl7 - Immunization history:: Adult Immunizations unknown. - Social history:: Smoking status: Patient denies any tobacco usage or history of. Screenin:35 Abuse screen: Denies threats or abuse. Denies injuries from another. Nutritional jl7 screening: No deficits noted. Tuberculosis screening: No symptoms or risk factors identified. Assessment: 12:35 Reassessment: ARCADIO Cedeno in triage assessing pt. jl7 12:35 General: See triage. jl7 Vital Signs: 12:34 BP 149 / 80; Pulse 79; Resp 18; Temp 98.2(O); Pulse Ox 96% on R/A; Weight 74.84 kg (R); jl7 Height 5 ft. 2 in. (157.48 cm) (R); Pain 5/10; 15:00 BP 181 / 79; Pulse 70; Resp 15; Pulse Ox 96% ; jl7 12:34 Body Mass Index 30.18 (74.84 kg, 157.48 cm) jl7 15:00 Pt reports she will take her HTN medication when she gets home jl7 [place] Coma Score: 12:40 Eye Response: spontaneous(4). Verbal Response: oriented(5). Motor Response: obeys pm1 commands(6). Total: 15. ED Course: 12:12 Patient arrived in ED. ja2 12:16 Wilian Daniels NP is PHCP. pm1 12:16 Gamal Jurado MD is Attending Physician. pm1 12:35 Patient has correct armband on for positive identification. jl7 12:37 Triage completed. jl7 12:37 Arm band placed on right wrist. jl7 13:38 CT Head C Spine In Process Unspecified. EDMS 14:12 Cheryle Mckinley, OVIDIO is Primary Nurse. ld1 15:20 Assist provider with laceration repair on right occipital area that was between 2.6 to jl7 7.5 cm using david. Set up tray. Performed by Wilian Daniels PRODUCTION LEADER Dressed with Bryanna, Patient tolerated well. Patient did not have IV access during this emergency room visit. Administered Medications: 14:15 Not Given (Patient Refused): Tetanus-Diphtheria Toxoid Adult 0.5 ml IM once; Provide jl7 Vaccine Information Statement (VIS). 14:45 Drug: Lidocaine (1 %) 5 ml Volume: 5 ml; Route: Infiltration; jl7 15:12 Follow up: Response: No adverse reaction jl7 Outcome: 15:08 Discharge ordered by . pm1 15:20 Discharged to home with family. jl7 15:20 Condition: stable 15:20 Discharge instructions given to patient, family, Instructed on discharge instructions, follow up and referral plans. medication usage, Demonstrated understanding of instructions, follow-up care, medications, Prescriptions given X 1. 15:22 Patient left the ED. jl7 Signatures: Dispatcher [employer] EDMS Wilian Daniels, ARCADIO PRODUCTION LEADER pm1 Jie Sharma RN RN jl7 Cheryle Mckinley RN RN ld1 Denisse Noland
[2022-01-06 15:31] VITALS: BP 149/80; TEMP 98.2; O2SAT 96
== END 2022-01-06 15:22 | disposition home or self-care (01) ==
LOC: ER 12:08
PROC: 0JQ00ZZ Repair Scalp Subcutaneous Tissue and Fascia, Open Approach (ICD-10-PCS; principal; 2022-01-06)
DX: S01.01XA Laceration without foreign body of scalp, initial encounter (principal); W01.0XXA Fall on same level from slipping, tripping and stumbling without subsequent striking against object, initial encounter; E11.9 Type 2 diabetes mellitus without complications; I10 Essential (primary) hypertension
CPT/HCPCS: 70450; 72125; 99284